=== PATIENT | male | born 1930 | race Hispanic/Latino ===

== ENCOUNTER 2016-03-23 08:26 | Emergency (ER) | payer MEDICARE, SELFPAY ==
--- NOTE | 2016-03-23 14:33 | Cat Scan Report ---
CT HEAD WITHOUT CONTRAST History: Head injury. Technique: Sequential noncontrast CT images. Findings: Right frontal soft tissue hematoma measures 2-3 cm in diameter. No associated calvarial fracture is appreciated. There is mild diffuse volume loss and chronic white matter changes which appear appropriate for this person's age. There is no evidence for hemorrhage, mass effect, extra-axial fluid collection or hydrocephalus. No chronic infarct. The visualized sinuses and mastoid air cells are well-aerated. Impression: No acute intracranial process. Right frontal soft tissue swelling/hematoma.
--- NOTE | 2016-03-23 14:34 | Cat Scan Report ---
CT SCAN OF THE CERVICAL SPINE: HISTORY: Neck injury, pain. TECHNIQUE: Contiguous 1.25 mm axial images of the cervical spine were obtained. Sagittal and coronal reformatted images. FINDINGS: There is normal alignment of the cervical spine. The body, pedicles and posterior ligaments appear normal. No evidence of fracture or subluxation is seen. Mild to moderate degenerative disc disease is noted at C5-6 and C6-7. The spinal canal appears normal. The prevertebral soft tissues appear normal. IMPRESSION: No acute injury is appreciated. Degenerative disc disease at C5-6 and C6-7.
[2016-03-23 15:55] VITALS: BP 142/79
--- NOTE | 2016-03-23 17:19 | Emergency Department Report ---
ED Fall HPI - General Chief Complaint: Fall Time Seen by Provider: 03/23/16 17:15 Source: patient, RN notes reviewed Limitations: No Limitations - History of Present Illness Initial Comments: patient is an 86-year-old gentleman who fell at home. He reports ground-level fall mechanical. He states that he struck his right frontal forehead. Having a small abrasion and bruising at that time. He knew he reports on Monday awaking and noticing significant bruising involving the right forehead area as well as the periorbital area as well he denies any headache denies any significant neck pain associated with this. He states that she takes cyclobenzaprine when necessary for his chronic mild neck pain. He describes coming in today because of the concern for the cosmetic appearance of his face. No otherwise no specific complaints he feels safe at home. He states he is taking his medications appropriately. He reports no headache whatsoever. MD Complaint: fall Onset/Timin -: days(s) Fall From: standing Fall Witnessed: no Place Fall Occurred: home Loss of Consciousness: none Prolonged Down Time?: no Symptoms Prior to Fall: none Location: head, face Severity scale (0 -10): 0 Quality: other Context: tripped/slipped Associated Symptoms: denies - Related Data Home Medications Medication Instructions Recorded Confirmed Last Taken Furosemide 20 mg PO DAILY 03/06/15 06/05/15 06/04/15 20mg Metoprolol [Lopressor TAB] 1.5 tab PO DAILY 03/06/15 06/05/15 06/04/15 1.5tab Oxybutynin [Ditropan] 5 mg PO DAILY 03/06/15 06/05/15 06/04/15 5mg Tamsulosin [Flomax] 0.4 mg PO QDAY 03/06/15 06/05/15 06/04/15 0.4mg Warfarin [Coumadin] 5 mg PO DAILY 03/06/15 06/05/15 06/04/15 5mg metFORMIN [Glucophage] 1,000 mg PO BID 03/06/15 06/05/15 06/04/15 1000mg ISOSORBIDE MONOnitrate [Imdur ER] 30 mg PO DAILY 05/01/15 06/05/15 06/04/15 30mg Previous Rx's Medication Instructions Recorded Last Taken Type Amiodarone [Cordarone 200 MG TAB] 200 mg PO BID #60 tab 05/01/15 06/04/15 Rx 200mg AtorvaSTATin [Lipitor] 10 mg PO DAILY #30 tablet 05/01/15 06/04/15 Rx 10mg Allergies Allergy/AdvReac Type Severity Reaction Status Date / Time No Known Allergies Allergy Verified 03/06/15 09:35 ED Review of Systems ROS: Stated complaint: Other details as noted in HPI Constitutional: denies: chills, fever Eyes: denies: eye pain, eye discharge, vision change ENT: denies: ear pain, throat pain Respiratory: denies: cough, shortness of breath, wheezing Cardiovascular: denies: chest pain, palpitations Endocrine: no symptoms reported Gastrointestinal: denies: abdominal pain, nausea, diarrhea Genitourinary: denies: urgency, dysuria Musculoskeletal: arthralgia (chronic). denies: back pain, joint swelling Skin: denies: rash, lesions Neurological: denies: headache, weakness, paresthesias Psychiatric: denies: anxiety, depression Hematological/Lymphatic: denies: easy bleeding, easy bruising ED Past Medical Hx - Past Medical History Hx Hypertension: Yes Hx Diabetes: Yes Hx Arthritis: Yes (generalized) Hx Dementia: No - Surgical History Hx Cholecystectomy: Yes (2007) - Social History Smoking Status: Former Smoker - Medications Home Medications: Home Medications Medication Instructions Recorded Confirmed Last Taken Type Furosemide 20 mg PO DAILY 03/06/15 06/05/15 06/04/15 History 20mg Metoprolol [Lopressor TAB] 1.5 tab PO DAILY 03/06/15 06/05/15 06/04/15 History 1.5tab Oxybutynin [Ditropan] 5 mg PO DAILY 03/06/15 06/05/15 06/04/15 History 5mg Tamsulosin [Flomax] 0.4 mg PO QDAY 03/06/15 06/05/15 06/04/15 History 0.4mg Warfarin [Coumadin] 5 mg PO DAILY 03/06/15 06/05/15 06/04/15 History 5mg metFORMIN [Glucophage] 1,000 mg PO BID 03/06/15 06/05/15 06/04/15 History 1000mg Amiodarone [Cordarone 200 MG TAB] 200 mg PO BID #60 tab 05/01/15 06/05/15 16 Rx 200mg AtorvaSTATin [Lipitor] 10 mg PO DAILY #30 tablet 05/01/15 06/05/15 06/04/15 Rx 10mg ISOSORBIDE MONOnitrate [Imdur ER] 30 mg PO DAILY 05/01/15 06/05/15 06/04/15 History 30mg ED Physical Exam - General General appearance: alert, in no apparent distress - Head Head exam: Present: other (right forehead with superficial abrasion with good hemostasis. Large underlying ecchymosis region. With dependent drainage to the right periorbital area. No tenderness with palpation of this area. No bony depression appreciated. No periorbital bony step-off appreciated.) - Eye Eye exam: Present: normal appearance, EOMI, periorbital swelling, other (R eye with subconj hematoma lateral aspect). Absent: periorbital tenderness Pupils: Present: other (3mm reactive pupils bilat) - ENT ENT exam: Present: normal orophraynx, mucous membranes moist, other (no tmj tenderness) - Neck Neck exam: Present: normal inspection, full ROM. Absent: tenderness - Respiratory Respiratory exam: Present: normal lung sounds bilaterally. Absent: respiratory distress - Cardiovascular Cardiovascular Exam: Present: regular rate, normal rhythm. Absent: systolic murmur, diastolic murmur, rubs, gallop - GI/Abdominal GI/Abdominal exam: Present: soft, normal bowel sounds - Rectal Rectal exam: Present: deferred - Extremities Exam Extremities exam: Present: normal inspection - Back Exam Back exam: Present: normal inspection - Neurological Exam Neurological exam: Present: alert, oriented X3 - Psychiatric Psychiatric exam: Present: normal affect, normal mood - Skin Skin exam: Present: warm, dry, intact, normal color. Absent: rash ED Course Vital Signs 03/23/16 15:54 Pulse Rate 71 Respiratory 18 Rate Blood Pressure 142/79 [Right] O2 Sat by Pulse 99 Oximetry - Reevaluation(s) Reevaluation #1: 03/23/16 18:02 Patient intact neurologically here. He is able to ambulate in the ED without difficulty. He is actually somewhat on onory due to his long stay here and requesting to go home at this time. I do not see any concerning features in his examination. His CT brain is negative for acute process. It does demonstrate mild contusion of the soft tissue in the right frontal scalp area as well as in the periorbital region. His CT of C-spine does demonstrate some chronic degenerative change. This is pre-existing as per the patient. I feel he is safe for home. His INR is 2.0 he is instructed to continue on his current regimen of Coumadin. ED Medical Decision Making - Lab Data INR 2.0 Critical care attestation.: If time is entered above; I have spent that time in minutes in the direct care of this critically ill patient, excluding procedure time. ED Disposition Clinical Impression: Contusion Qualifiers: Encounter type: initial encounter Contusion area: head Contusion of head detail : periocular area Laterality: right Qualified Code(s): S00.11XA - Contusion of right eyelid and periocular area, initial encounter Cervical strain, acute Qualifiers: Encounter type: initial encounter Qualified Code(s): S16.1XXA - Strain of muscle, fascia and tendon at neck level, initial encounter Disposition: DISCHARGED TO HOME OR SELFCARE Is pt being admited?: No Does the pt Need Aspirin: No Condition: Stable Instructions: Cervical Spine Strain (ED), Black Eye (ED) Additional Instructions: Take tylenol as needed for pains. Cyclobenzaprine will help with your pains as well. Referrals: CHACORTA DIAL MD [Primary Care Provider] - 3-5 Days
== END 2016-03-23 17:30 | disposition home or self-care (01) ==
LOC: ED 08:26
DX: S00.11XA Contusion of right eyelid and periocular area, initial encounter (principal); S16.1XXA Strain of muscle, fascia and tendon at neck level, initial encounter; I10 Essential (primary) hypertension; E11.9 Type 2 diabetes mellitus without complications; M19.90 Unspecified osteoarthritis, unspecified site; Z87.891 Personal history of nicotine dependence; W18.30XA Fall on same level, unspecified, initial encounter; Y93.89 Activity, other specified; Y99.8 Other external cause status; Y92.009 Unspecified place in unspecified non-institutional (private) residence as the place of occurrence of the external cause
CPT/HCPCS: 70450; 72125

== ENCOUNTER 2016-08-28 22:12 | Inpatient (IN) | payer MEDICARE ==
--- NOTE | 2016-08-28 23:02 | Emergency Department Report ---
HPI - General Chief Complaint: Fall Time Seen by Provider: 08/28/16 22:45 - HPI HPI: Room 9 The patient is an 86-year-old male presenting with a chief complaint of fall. The patient states this morning at approximately 10:30 all walking to the kitchen and fell. The patient is uncertain why he fell but states that he did not trip. The patient states he does not believe he lost consciousness but is uncertain. The patient eventually got up and went to his bedroom where he eventually fell a second time. Family came to the home to find the patient will the floor. Patient denied chest pain nausea/vomiting or shortness of breath. Patient complains of pain in his back with movement since the fall but denies back pain at rest. Patient states he has been unable to urinate today. Location: [see above] Duration: [see above] Quality: [see above] Severity: [see above] Modifying factors: [see above] Context: [see above] Mode of transportation: [not driving] ED Past Medical Hx - Past Medical History Hx Hypertension: Yes Hx Diabetes: Yes Hx Arthritis: Yes (generalized) Additional medical history: Atrial fibrillation - Surgical History Hx Cholecystectomy: Yes (2007) Additional Surgical History: Cardiac ablation - Family History Family history: no significant - Social History Smoking Status: Never Smoker Substance Use Type: None - Medications Home Medications: Home Medications Medication Instructions Recorded Confirmed Last Taken Type Furosemide 20 mg PO DAILY 03/06/15 08/28/16 08/28/16 08:00 History Metoprolol [Lopressor TAB] 1.5 tab PO DAILY 03/06/15 08/28/16 08/28/16 08:00 History Oxybutynin [Ditropan] 5 mg PO DAILY 03/06/15 08/28/16 08/28/16 08:00 History Tamsulosin [Flomax] 0.4 mg PO QDAY 03/06/15 08/28/16 08/28/16 08:00 History Warfarin [Coumadin] 5 mg PO DAILY 03/06/15 08/28/16 08/27/16 17:00 History metFORMIN [Glucophage] 1,000 mg PO BID 03/06/15 08/28/16 08/28/16 08:00 History ISOSORBIDE MONOnitrate [Imdur ER] 30 mg PO DAILY 05/01/15 08/28/16 08/28/16 08: 00 History Amiodarone HCl [Amiodarone 100 MG 200 mg PO BID 08/28/16 08/28/16 08/28/16 08: 00 History TAB] AtorvaSTATin [Lipitor] 10 mg PO QHS 08/28/16 08/28/16 08/27/16 21:00 History ED Review of Systems ROS: Stated complaint: FALL Other details as noted in HPI Comment: All other systems reviewed and negative Constitutional: weakness. denies: chills, fever Eyes: denies: eye pain, eye discharge, vision change ENT: denies: ear pain, throat pain Respiratory: denies: cough, shortness of breath, wheezing Cardiovascular: denies: chest pain, palpitations Endocrine: no symptoms reported Gastrointestinal: denies: abdominal pain, nausea, diarrhea Genitourinary: other (unable to urinate) Musculoskeletal: back pain Skin: denies: rash, lesions Neurological: denies: headache, weakness, paresthesias Psychiatric: denies: anxiety, depression Hematological/Lymphatic: denies: easy bleeding, easy bruising Physical Exam - Physical Exam Vital Signs: Vital Signs 08/28/16 22:28 Temperature 98.0 F Pulse Rate 82 Respiratory 16 Rate Blood Pressure 147/63 Blood Pressure 147/63 [Left] O2 Sat by Pulse 95 Oximetry Physical Exam: GENERAL: The patient is well-developed well-nourished male lying on stretcher not appearing to be in acute distress. [] HEENT: Normocephalic. Atraumatic. Extraocular motions are intact. Patient has moist mucous membranes. NECK: Supple. Trachea midline CHEST/LUNGS: Clear to auscultation. There is no respiratory distress noted. HEART/CARDIOVASCULAR: Regular. There is no tachycardia. There is no gallop rub or murmur. ABDOMEN: Abdomen is soft, except for suprapubic fullness with obvious distended bladder. Patient has normal bowel sounds. SKIN: There is no diaphoresis. NEURO: The patient is awake, alert, and oriented. The patient is cooperative. The patient has no focal neurologic deficits. The patient has normal speech MUSCULOSKELETAL: There is no tenderness or deformity. There is no evidence of acute injury. ED Course Vital Signs 08/28/16 22:28 Temperature 98.0 F Pulse Rate 82 Respiratory 16 Rate Blood Pressure 147/63 Blood Pressure 147/63 [Left] O2 Sat by Pulse 95 Oximetry ED Medical Decision Making - Lab Data Result diagrams: 08/28/16 22:57 08/28/16 22:57 Laboratory Tests 08/28/16 08/28/16 08/28/16 22:57 22:57 22:57 WBC 12.3 H RBC 4.30 Hgb 12.7 Hct 38.8 MCV 90 MCH 29 MCHC 33 RDW 15.2 Plt Count 183 Lymph % (Auto) 4.2 L [place] % (Auto) 9.0 H Eos % (Auto) 0.0 Baso % (Auto) 0.0 Lymph # 0.5 L [place] # 1.1 H Eos # 0.0 Baso # 0.0 Seg Neutrophils % 86.8 H Seg Neutrophils # 10.6 H PT 24.7 H INR 2.10 H APTT 34.1 Sodium 140 Potassium 4.0 Chloride 101.2 Carbon Dioxide 23 Anion Gap 20 BUN 25 H Creatinine 0.9 Estimated GFR > 60 BUN/Creatinine Ratio 27.77 Glucose 119 H Calcium 8.7 Total Bilirubin 0.70 AST 89 H ALT 23 Alkaline Phosphatase 47 Total Creatine Kinase 6660 H CK-MB (CK-2) 17.5 H CK-MB (CK-2) Rel Index 0.2 Troponin T < 0.010 Total Protein 6.6 Albumin 3.7 L Albumin/Globulin Ratio 1.3 Urine Color Urine Turbidity Urine pH Ur Specific [place] Urine Protein Urine Glucose (UA) Urine Ketones Urine Blood Urine Nitrite Urine Bilirubin Urine Urobilinogen Ur Leukocyte Esterase Urine WBC (Auto) Urine RBC (Auto) Urine Bacteria (Auto) Urine Mucus 08/28/16 Unknown WBC RBC Hgb Hct MCV MCH MCHC RDW Plt Count Lymph % (Auto) [place] % (Auto) Eos % (Auto) Baso % (Auto) Lymph # [place] # Eos # Baso # Seg Neutrophils % Seg Neutrophils # PT INR APTT Sodium Potassium Chloride Carbon Dioxide Anion Gap BUN Creatinine Estimated GFR BUN/Creatinine Ratio Glucose Calcium Total Bilirubin AST ALT Alkaline Phosphatase Total Creatine Kinase CK-MB (CK-2) CK-MB (CK-2) Rel Index Troponin T Total Protein Albumin Albumin/Globulin Ratio Urine Color Yellow Urine Turbidity Clear Urine pH 5.0 Ur Specific [place] 1.018 Urine Protein <15 mg/dl Urine Glucose (UA) Neg Urine Ketones Tr Urine Blood Mod Urine Nitrite Neg Urine Bilirubin Neg Urine Urobilinogen < 2.0 Ur Leukocyte Esterase Neg Urine WBC (Auto) 1.0 Urine RBC (Auto) 2.0 Urine Bacteria (Auto) 1+ Urine Mucus Few - EKG Data -: EKG Interpreted by Me EKG shows normal: sinus rhythm Rate: normal - EKG Data When compared to previous EKG there are: previous EKG unavailable Interpretation: other (no ischemic changes seen) - Radiology Data Radiology results: report reviewed (CT head, CT cervical spine), image reviewed (CT head, CT cervical spine, pelvis x-ray, lumbar x-ray, thoracic spine x-ray) interpreted by me: Pelvis x-ray-no definite fractures Lumbar spine [id number] changes at L5 thoracic spine x-ray-no acute fractures CT cervical spine (read by radiologist)-no significant abnormality CT head (read by radiologist)-there are chronic involutional changes. There is no skull fracture, hemorrhage or edema. - Differential Diagnosis syncope, rhabdomyolysis, ICH, pelvic fracture Critical care attestation.: If time is entered above; I have spent that time in minutes in the direct care of this critically ill patient, excluding procedure time. ED Disposition Clinical Impression: Rhabdomyolysis, Weakness, Fall Disposition: OP ADMIT IP TO THIS HOSP Is pt being admited?: Yes Does the pt Need Aspirin: No Condition: Fair Referrals: PRIMARY CARE, [Primary Care Provider] - 3-5 Days Time of Disposition: 03:06 (hospitalist paged)
[2016-08-28 23:17] LABS: Hematocrit 38.8 % (35.5-45.6); Hemoglobin 12.7 gm/dl (11.8-15.2); Mean Corpuscular HGB Conc 33 % (32-34); Mean Corpuscular Hemoglobin 29 pg (28-32); Mean Corpuscular Volume 90 fl (84-94); Platelet Count 183 K/mm3 (140-440); Red Cell Distribution Width 15.2 % (13.2-15.2); White Blood Count 12.3 K/mm3 (4.5-11.0)
[2016-08-28] MEDS ORDERED: NORCO 5/325 PO ONE (23:26)
[2016-08-28 23:28] LABS: INR 2.1 (0.87-1.13)
[2016-08-28 23:29] LABS: Partial Thromboplastin Time 34.1 Sec. (24.2-36.6)
[2016-08-28 23:33] LABS: Creatine Kinase MB 17.5 ng/mL (0.0-4.0)
[2016-08-28 23:34] LABS: Alanine Aminotransferase 23 units/L (7-56); Albumin 3.7 g/dL (3.9-5); Albumin/Globulin Ratio 1.3 %; Alkaline Phosphatase 47 units/L (35-129); Anion Gap 20 mmol/L; BUN/Creatinine Ratio 27.77; Blood Urea Nitrogen 25 mg/dL (9-20); Calcium 8.7 mg/dL (8.4-10.2); Carbon Dioxide 23 mmol/L (22-30); Chloride 101.2 mmol/L (98-107); Glucose 119 mg/dL (75-100); Sodium 140 mmol/L (137-145); Total Protein 6.6 g/dL (6.3-8.2)
[2016-08-28 23:49] LABS: Creatine Kinase 6660 units/L (55-170)
[2016-08-29 01:15] LABS: Bacteria,Urine 1+ /HPF (Negative); Bilirubin,Urine NEG (Negative); Blood,Urine MOD (Negative); Ketones,Urine TR mg/dL (Negative); Leukocyte Esterase,Urine NEG (Negative); Mucus,Urine FEW /HPF; Nitrite,Urine NEG (Negative); Protein,Urine <15 mg/dL mg/dL (Negative); Urobilinogen,Urine < 2.0 mg/dL (<2.0)
--- NOTE | 2016-08-29 02:33 | Cat Scan Report ---
FINAL REPORT PROCEDURE: CT HEAD/BRAIN WO CON TECHNIQUE: Computerized tomography of the head was performed without contrast material. HISTORY: fall on Coumadin, unknown LOC COMPARISON: 03/23/2016 FINDINGS: Skull and scalp: Normal. Paranasal sinuses: Normal. Ventricles and subarachnoid spaces: There is moderate age-appropriate central and cortical atrophy. There is no hydrocephalus or asymmetry.. Cerebrum: No evidence of hemorrhage, acute infarction or mass . Cerebellum and brainstem: No evidence of hemorrhage, acute infarction or mass. Vasculature: There is calcified plaque in the cavernous portions of the internal carotid arteries. There is no evidence of acute thrombosis.. Comments: None. IMPRESSION: There are chronic involutional changes. There is no skull fracture, hemorrhage or edema.
--- NOTE | 2016-08-29 02:45 | Cat Scan Report ---
FINAL REPORT PROCEDURE: CT CERVICAL SPINE WO CON TECHNIQUE: Computerized tomography of the cervical spine was performed from the skull base to T1 without contrast material. HISTORY: fall on Coumadin, unknown LOC COMPARISON: 03/23/2016 FINDINGS: There is normal lordosis of the cervical spine. There are no fractures or malalignments. The skull base and the foramen magnum are intact. There is right facet arthropathy at C3-C4 causing right foraminal stenosis. There is moderate loss of disc height and osteophytic ridging at C5-C6 and C6-C7. There is no facet dislocation. Prevertebral soft tissues are normal in thickness IMPRESSION: No significant abnormality.
[2016-08-29] MEDS ORDERED: NACL 0.9% 1000 ML 1,000 ML IV ONE (03:05)
[2016-08-29] MEDS ORDERED: ZOFRAN IV PRN (04:45)
[2016-08-29] MEDS ORDERED: SODIUM BICARBONATE 100 MEQ in STERILE WATER 1,000 ML IV ONE (05:00)
--- NOTE | 2016-08-29 05:23 | History and Physical Report ---
History of Present Illness Date of examination: 08/29/16 Date of admission: 08/29/16 04:41 Chief complaint: Chief complaint is fall order complaining include elevated CPK History of present illness: History of present illness the patient is an 86-year-old male who said he fell twice at home prior to coming to the emergency room, patient was not sure why he fell, he said he went up to go to the bathroom and fell but was not sure that he lost consciousness. He got up and went back to the bedroom and fell again and family came back and found him on the floor, there is no history of chest pain no history of shortness of breath nausea or vomiting and no history of fever, however patient complaining about being unable to urinate yesterday but there is no history of suprapubic pain or pressure Past History Past Medical History: atrial fib, arthritis, diabetes, hypertension, other ( DEMENTIA) Past Surgical History: cholecystectomy, Other (CARDIAC ABLATION) Social history: Lives alone Family history: no significant family history Medications and Allergies Allergies Allergy/AdvReac Type Severity Reaction Status Date / Time No Known Allergies Allergy Verified 08/28/16 22:33 Home Medications Medication Instructions Recorded Confirmed Last Taken Type Furosemide 20 mg PO DAILY 03/06/15 08/28/16 08/28/16 08:00 History Metoprolol [Lopressor TAB] 1.5 tab PO DAILY 03/06/15 08/28/16 08/28/16 08:00 History Oxybutynin [Ditropan] 5 mg PO DAILY 03/06/15 08/28/16 08/28/16 08:00 History Tamsulosin [Flomax] 0.4 mg PO QDAY 03/06/15 08/28/16 08/28/16 08:00 History Warfarin [Coumadin] 5 mg PO DAILY 03/06/15 08/28/16 08/27/16 17:00 History metFORMIN [Glucophage] 1,000 mg PO BID 03/06/15 08/28/16 08/28/16 08:00 History ISOSORBIDE MONOnitrate [Imdur ER] 30 mg PO DAILY 05/01/15 08/28/16 08/28/16 08: 00 History Amiodarone HCl [Amiodarone 100 MG 200 mg PO BID 08/28/16 08/28/16 08/28/16 08: 00 History TAB] AtorvaSTATin [Lipitor] 10 mg PO QHS 08/28/16 08/28/16 08/27/16 21:00 History Active Meds: Active Medications Sodium Chloride (Nacl 0.9% 1000 Ml) 1,000 mls @ 250 mls/hr IV ONCE ONE Stop: 08/29/16 07:04 Last Admin: 08/29/16 03:47 Dose: 250 mls/hr Sodium Bicarbonate 100 meq/ (Sterile Water) 1,100 mls @ 75 mls/hr IV ONCE.ED ONE Stop: 08/29/16 19:39 Insulin Human Regular (Novolin R) 0 units SUB-Q AC FLAVIA PRN Reason: Protocol Insulin Human Regular (Novolin R) 0 units SUB-Q QHS FLAVIA PRN Reason: Protocol Ondansetron HCl (Zofran) 4 mg IV Q6H PRN PRN Reason: Nausea And Vomiting Review of Systems Constitutional: weakness, no weight loss, no weight gain, no fever, no anorexia , no fatigue, no malaise, no lethargy, no daytime sleepiness Eyes: bilateral: other (NO BILATERAL EYE SYMPTOMS) Ears, nose, mouth and throat: no ear pain, no ear discharge, no tinnitis, no decreased hearing, no nose pain, no nasal congestion, no nasal discharge, no sinus pressure, no sinus pain, no bleeding gums, no dental pain, no mouth pain, no dysphagia, no hoarseness, no sore throat, no swelling in mouth, no swelling in throat, no voice changes, no post-nasal drip, no headache, no vertigo, no pain front of neck, no neck fullness/pressure, no neck lump Cardiovascular: high blood pressure, no chest pain, no orthopnea, no palpitations, no rapid/irregular heart beat, no edema, no syncope, no lightheadedness, no shortness of breath, no claudication, no phlebitis, no leg edema Respiratory: no cough, no cough with sputum, no excessive sputum, no hemoptysis , no shortness of breath, no dyspnea on exertion, no wheezing, no pleurisy, no pain, no pain on inspiration, no sleep apnea, no respiratory infections, no home oxygen Gastrointestinal: no abdominal pain, no nausea, no vomiting, no diarrhea, no constipation, no change in bowel habits, no hematochezia, no loss of appetite, no early satiety, no heartburn, no excessive gas, no jaundice, no dyspepsia/ bloating, no early satiety Genitourinary Male: dysuria, no hematuria, no flank pain, no discharge, no urinary frequency, no urinary hesitancy, no nocturia, no incontinence, no erectile dysfunction, no genital pain, no impotence, no decreased libido, no testicular pain, no testicular lump, no difficulties fathering child, no polyuria, no urinary retention, no kidney stones Rectal: no pain, no incontinence, no hemorrhoids, no discharge, no flatulence, no other Musculoskeletal: no neck pain, no shooting arm pain, no arm numbness/tingling, no low back pain, no shooting leg pain, no leg numbness/tingling, no hot joints , no morning stiffness, no muscle weakness, no muscle cramps, no myalgias, no atrophy, no limitation of motion, no frequent falls, no fractures, no loss of height, no prior amputations Integumentary: no rash, no pruritis, no redness, no sores, no wounds, no jaundice, no bullae, no lesions, no darkening of skin, no depigmentation, no acne, no dryness, no color changes, no change in hair/nails, no brittle nails, no striae, no hirsutism, no foot/leg ulcers, no onychomycosis Neurological: memory loss, no head injury, no transient paralysis, no paralysis , no weakness, no parathesias, no numbness, no tingling, no seizures, no syncope , no tremors, no ataxia, no headaches, no migraines, no tic, no convulsions, no aphasia, no change in speech, no change in mentation, no confusion, no changes in smell/taste, no motor disturbance, no sensory deficit, no double vision, no loss of vision, no hearing difficulties, no burning pain Psychiatric: memory loss, no change in sleep habits, no sleep disturbances, no insomnia, no hypersomnia, no change in appetite, no change in libido, no depression, no hopelessness, no anhedonia, no anxiety attacks, no difficulties concentrating Endocrine: no cold intolerance, no heat intolerance, no polyphagia, no excessive thirst, no polydipsia, no polyuria, no nocturia, no excessive sweating , no flushing, no increase in ring/shoe/hat size, no proptosis, no thyroid mass , no palpatations, no high blood sugars, no low blood sugars, no recent glucocorticoid use Hematologic/Lymphatic: no easy bruising, no easy bleeding, no lymphadenopathy, no lymphedema, no thrombophilia Allergic/Immunologic: no urticaria, no allergic rhinitis, no persistent infections, no anaphylaxis Exam - Constitutional Vitals: Temp Pulse Resp BP Pulse Ox 98.0 F 91 H 16 128/54 95 08/28/16 22:28 08/29/16 05:13 08/29/16 05:13 08/29/16 05:13 08/29/16 05:13 General appearance: Present: no acute distress - EENT Eyes: Present: PERRL, EOM intact. Absent: scleral icterus, conjunctival injection, miosis, mydriasis ENT: clear oral mucosa, dentition normal, no oropharyngeal erythema, no poor dentition, no edentulous - Neck Neck: Present: supple, normal ROM. Absent: rigidity, enlarged thyroid, masses or JVD, carotid bruits - Respiratory Respiratory effort: normal - Cardiovascular Rhythm: regular Heart Sounds: Present: S1 & S2. Absent: gallop, systolic murmur, diastolic murmur, rub, click - Extremities Extremities: no ischemia, No edema Peripheral Pulses: within normal limits - Abdominal General gastrointestinal: Present: soft, non-tender, non-distended, normal bowel sounds. Absent: tender, distended, rigid, hypoactive bowel sounds, absent bowel sounds, hepatomegaly, splenomegaly, mass, hernia Male genitourinary: Present: deferred - Rectal Rectal Exam: deferred - Integumentary Integumentary: Present: clear, warm, dry, normal turgor. Absent: erythema, jaundice, clammy - Musculoskeletal Musculoskeletal: strength equal bilaterally - Psychiatric Psychiatric: appropriate mood/affect Results - Labs CBC & Chem 7: 08/28/16 22:57 08/28/16 22:57 Labs: Laboratory Last Values WBC 12.3 K/mm3 (4.5-11.0) H 08/28/16 22:57 RBC 4.30 M/mm3 (3.65-5.03) 08/28/16 22:57 Hgb 12.7 gm/dl (11.8-15.2) 08/28/16 22:57 Hct 38.8 % (35.5-45.6) 08/28/16 22:57 MCV 90 fl (84-94) 08/28/16 22:57 MCH 29 pg (28-32) 08/28/16 22:57 MCHC 33 % (32-34) 08/28/16 22:57 RDW 15.2 % (13.2-15.2) 08/28/16 22:57 Plt Count 183 K/mm3 (140-440) 08/28/16 22:57 Lymph % (Auto) 4.2 % (13.4-35.0) L 08/28/16 22:57 [place] % (Auto) 9.0 % (0.0-7.3) H 08/28/16 22:57 Eos % (Auto) 0.0 % (0.0-4.3) 08/28/16 22:57 Baso % (Auto) 0.0 % (0.0-1.8) 08/28/16 22:57 Lymph # 0.5 K/mm3 (1.2-5.4) L 08/28/16 22:57 [place] # 1.1 K/mm3 (0.0-0.8) H 08/28/16 22:57 Eos # 0.0 K/mm3 (0.0-0.4) 08/28/16 22:57 Baso # 0.0 K/mm3 (0.0-0.1) 08/28/16 22:57 Seg Neutrophils % 86.8 % (40.0-70.0) H 08/28/16 22:57 Seg Neutrophils # 10.6 K/mm3 (1.8-7.7) H 08/28/16 22:57 PT 24.7 Sec. (12.2-14.9) H 08/28/16 22:57 INR 2.10 (0.87-1.13) H 08/28/16 22:57 APTT 34.1 Sec. (24.2-36.6) 08/28/16 22:57 Sodium 140 mmol/L (137-145) 08/28/16 22:57 Potassium 4.0 mmol/L (3.6-5.0) 08/28/16 22:57 Chloride 101.2 mmol/L (98-107) 08/28/16 22:57 Carbon Dioxide 23 mmol/L (22-30) 08/28/16 22:57 Anion Gap 20 mmol/L 08/28/16 22:57 BUN 25 mg/dL (9-20) H 08/28/16 22:57 Creatinine 0.9 mg/dL (0.8-1.5) 08/28/16 22:57 Estimated GFR > 60 ml/min 08/28/16 22:57 BUN/Creatinine Ratio 27.77 % 08/28/16 22:57 Glucose 119 mg/dL (75-100) H 08/28/16 22:57 Calcium 8.7 mg/dL (8.4-10.2) 08/28/16 22:57 Total Bilirubin 0.70 mg/dL (0.1-1.2) 08/28/16 22:57 AST 89 units/L (5-40) H 08/28/16 22:57 ALT 23 units/L (7-56) 08/28/16 22:57 Alkaline Phosphatase 47 units/L (35-129) 08/28/16 22:57 Total Creatine Kinase 6660 units/L (55-170) H 08/28/16 22:57 CK-MB (CK-2) 17.5 ng/mL (0.0-4.0) H 08/28/16 22:57 CK-MB (CK-2) Rel Index 0.2 (0-4) 08/28/16 22:57 Troponin T < 0.010 ng/mL (0.00-0.029) 08/28/16 22:57 Total Protein 6.6 g/dL (6.3-8.2) 08/28/16 22:57 Albumin 3.7 g/dL (3.9-5) L 08/28/16 22:57 Albumin/Globulin Ratio 1.3 % 08/28/16 22:57 Urine Color Yellow (Yellow) 08/28/16 Unknown Urine Turbidity Clear (Clear) 08/28/16 Unknown Urine pH 5.0 (5.0-7.0) 08/28/16 Unknown Ur Specific [place] 1.018 (1.003-1.030) 08/28/16 Unknown Urine Protein <15 mg/dl mg/dL (Negative) 08/28/16 Unknown Urine Glucose (UA) Neg mg/dL (Negative) 08/28/16 Unknown Urine Ketones Tr mg/dL (Negative) 08/28/16 Unknown Urine Blood Mod (Negative) 08/28/16 Unknown Urine Nitrite Neg (Negative) 08/28/16 Unknown Urine Bilirubin Neg (Negative) 08/28/16 Unknown Urine Urobilinogen < 2.0 mg/dL (<2.0) 08/28/16 Unknown Ur Leukocyte Esterase Neg (Negative) 08/28/16 Unknown Urine WBC (Auto) 1.0 /HPF (0.0-6.0) 08/28/16 Unknown Urine RBC (Auto) 2.0 /HPF (0.0-6.0) 08/28/16 Unknown Urine Bacteria (Auto) 1+ /HPF (Negative) 08/28/16 Unknown Urine Mucus Few /HPF 08/28/16 Unknown Assessment and Plan - Patient Problems (1) Fall Current Visit: Yes Status: Acute Qualifiers: Encounter type: E (2) Rhabdomyolysis Current Visit: Yes Status: Acute Qualifiers: Rhabdomyolysis type: R Encounter type: E Plan to address problem: Patient will be admitted to medical floor I will be on IV 1 Litre of water mixed with back 2 amps of bicarbonate and given the rate of 75 mL an hour times one does and patient will be reassessed for continuation of IV bicarbonate solution. Patient will have CPK checked every 6 hours 3 more levels and will have 2-D echo done because of repeated falls patient's diet will be consistent carbohydrate diet and patient will be on Accu-Chek before meals and daily at bedtime followed by sliding scale using low dose scale and regular insulin coverage (3) Weakness Current Visit: Yes Status: Acute
--- NOTE | 2016-08-29 08:11 | Event Note ---
Date: 08/29/16 Patient with rhabdomyolysis after fall. . He is on iv fluids. He was seen and examined by me today. Continue current management.
--- NOTE | 2016-08-29 08:26 | XRay Report ---
PELVIS RADIOGRAPH INDICATION: Pelvic pain, fall. COMPARISON: None similar. FINDINGS: Frontal pelvic radiograph demonstrates intact articulation. Nonobstructive bowel gas pattern with rectal stool. Intact imaged bilateral SI and hip joints. Lower lumbar degenerative changes. Bony demineralization. CONCLUSION: No acute radiographic abnormality with few other findings, as above. Thank you for the opportunity to participate in this patient's care.
[2016-08-29] MEDS ORDERED: D5NS 1,000 ML IV SCH (08:30)
--- NOTE | 2016-08-29 08:34 | XRay Report ---
THORACIC SPINE RADIOGRAPHS: INDICATION: Back pain after fall. COMPARISON: None similar. FINDINGS: AP and crosstable lateral thoracic spine radiographs demonstrate normal vertebral body stature with multilevel degenerative spurring and disc calcifications, more so mid to lower thoracic. Mild thoracic dextroscoliosis apex about T6. Few aortic and carotid atherosclerotic calcifications. Clear imaged lungs. Left hemidiaphragm maybe slightly elevated. Normal heart size. Osteopenia/osteoporosis. No abnormal paraspinal density suspected. CONCLUSION: No acute thoracic spine radiographic abnormality with degenerative changes and various other findings, as above. Please correlate. Thank you for the opportunity to participate in this patient's care.
--- NOTE | 2016-08-29 09:47 | XRay Report ---
LUMBAR SPINE RADIOGRAPHS: INDICATION: Lower back pain after fall. COMPARISON: None similar. FINDINGS: AP and crosstable lateral lumbar spine radiographs demonstrate normal vertebral body stature with moderate diffuse multilevel degenerative spurring. Lower lumbar facet arthropathy as well. Osteopenia/osteoporosis. Approximately 4 mm retrolisthesis of L2 over L3. Multilevel disc degeneration/narrowing, greatest at L2-L3. Right upper quadrant possible cholecystectomy clips. Few vascular calcifications. Abdominal aorta caliber estimated at 2.6 cm. Rectosigmoid stool. Intact SI joints. CONCLUSION: No acute lumbar radiographic abnormality with various degenerative changes and few other findings, as above. Thank you for the opportunity to participate in this patient's care.
[2016-08-29] MEDS: NACL 0.9% 1000 ML 1,000 ML IV SCH (13:33)
[2016-08-29] MEDS ORDERED: NON-FORMULARY (Amiodarone Hcl [Amiodarone 100 Mg Tab] 200 MG) PO SCH (16:00)
[2016-08-29] MEDS: FLOMAX PO SCH (17:00)
[2016-08-29] MEDS: DITROPAN PO SCH (17:09)
[2016-08-29] MEDS: COUMADIN PO SCH (17:09)
[2016-08-29] MEDS: CORDARONE PO SCH ×2 (17:10→22:55)
[2016-08-29] MEDS: IMDUR PO SCH (17:13)
[2016-08-29] MEDS: LOPRESSOR PO SCH (17:18)
[2016-08-29] MEDS: NORCO 5/325 PO PRN (17:29)
--- NOTE | 2016-08-29 18:06 | Admit Criteria Form ---
Admission Criteria Documentation: MUSCULOSKELETAL DISEASE GRG Clinical Indications for Admission to Inpatient Care (Place 'X' for any and all applicable criteria): Hospital admission is needed for appropriate care of the patient because of 1 or more of the following: [ ]I. Fracture, dislocation, or other musculoskeletal injury requiring inpatient care(medical) as indicated by 1 or more of the following(4)(5)(6)(7) [ ]a) Vertebral fracture requiring observation for instability or neurologic compromise (8) [ ]b) Compartment syndrome (proven or cannot be ruled out during observation level of care) (9) [ ]c) Limb-threatening injury [ ]d) Major injury requiring inpatient stabilization such as traction initiation or external fixation before internal fixation or closure of complex or open fracture [ ]e) Major injury requiring inpatient treatment after emergency or observation level care (as appropriate) [ ]f) Severe pain requiring acute inpatient management [ ]g) Injury with suspicion of abuse or neglect (eg., child, dependent elderly) [ ]II. Newly diagnosed or suspected bone, joint, or orthopedic device infection (e.g., osteomyelitis, septic arthritis) needing 1 or more of the following(1)(2)(3) [ ]a) IV antibiotics that cannot be initiated in other than inpatient setting (e.g., patient too unstable or home infusion not available) [ ]b) Device removal or replacement [ ]c) Bone or soft tissue debridement [ ]d) Joint drainage (drain placement or repetitive aspirations) [ ]III. Severe rheumatologic disease (e.g., systemic lupus erythematosus, rheumatoid arthritis) with complications or comorbidities (Also use Optimal Recovery Care Criteria or General Recovery Criteria as appropriate on the basis of predominant condition), including 1 or more of the following( 10)(11)(12)(13) [ ]a) Severe infection (e.g., ALMOND HULLER infection, sepsis) (14) [ ]b) Respiratory complications, including 1 or more of the following : [ ]i) Pleural effusion with respiratory compromise [ ]ii) Pulmonary hypertension with congestive failure [ ]iii) Respiratory failure [ ]iv) Pulmonary hemorrhage (15) [ ]c) Hematologic disease, including 1 or more of the following: [ ]i) Coagulopathy with bleeding [ ]ii) Thrombosis with hypercoagulable state [ ]iii) Thrombotic thrombocytopenic purpura [ ]d) Cerebritis with seizures, psychosis, or other severe abnormalities [ ]e) Vertebral destruction with monitoring needed for cervical myelopathy& possible respiratory compromise [ ]f) Exacerbation that requires inpatient treatment (e.g., intravenous immunosuppression) (16) [ ]g) Acute renal failure [ ]h) Cerebritis with seizures, psychosis, Altered mental status, or other neurologic abnormalities [ ]i) Pericardial effusion with tamponade [ ]j) Vertebral destruction, with monitoring needed for cervical myelopathy and possible respiratory compromise [ ]IV. Severe vasculitis with complications or comorbidities (Also use Optimal Recovery Care Criteria General Recovery Criteria as appropriate on the basis of predominant condition), including 1 or more of the following(11)(12)(17)(18)(19)(20) [ ]a) Exacerbation that requires inpatient treatment (e.g., intravenous immunosuppression) (19)(21) [ ]b) Pulmonary hemorrhage (15) [ ]c) ALMOND HULLER vasculitis with seizures, psychosis, Altered mental status that is severe or persistent, or other severe abnormalities (22) [ ]d) Cerebral infarction [ ]e) Gastrointestinal ischemia [ ]f) Gangrene or threatened amputation [ ]g) Renal failure (16) [ ]h) Other significant complications of vasculitis ( eg., tissue or organ ischemia, organ dysfunction ) [ ]V. Severe myopathy as indicated by 1 or more of the following (28)(29) [ ]a) New onset of airway compromise or inability to swallow [ ]b) Respiratory deterioration with observation needed for impending respiratory failure [ ]c) Exacerbation that requires inpatient treatment (e.g., intravenous immunosuppression) [ ]. Severe crystal gout (arthropathy) indicated by 1 or more of the following (23)(24) [ ]a) Severe pain requiring acute inpatient management [ ]b) Exacerbation that requires inpatient treatment (e.g., intravenous treatment) [X ]VII.Rhabdomyolysis and 1 or more of the following (25)(26)(27) [ ]a) Acute renal failure [ X]b) Need for intravenous hydration after emergency or observation level care (as appropriate) [ ]c) Inability to maintain oral hydration [ ]d) Change in mental status [ ]e) Electrolyte abnormality that remains after emergency or observation level care (as appropriate) [ ]VIII Post amputation complication, as indicated by ANY ONE of the following [ ]a) Infection [ ]b) Dehiscence [ ]c) Myodesis failure [ ]IX. Severe pain requiring acute inpatient management due to musculoskeletal condition [ ]X. Musculoskeletal Disease and ALL of the following: [ ]a) Symptom or finding for which emergency and observation care have failed or are not considered appropriate (Use General Criteria: Observation Care as appropriate) [ ]b) Presence of ANY ONE of the following [ ]i) A General Admission Criteria [ ]ii) A Pediatric General Admission Criteria The original [facility] [employer] content created by [facility] [employer] has been revised. The portions of the content which have been revised are identified through the use of italic text or in bold, and [facility] has neither reviewed nor approved the modified material. All other unmodified content is copyright [facility] [employer]. Please see references footnoted in the original [facility] edition [facility] Admission Criteria Met: Yes
[2016-08-29] MEDS: GLUCOPHAGE PO SCH (22:56)
[2016-08-30] MEDS: NACL 0.9% 1000 ML 1,000 ML IV SCH ×2 (04:37→19:43)
[2016-08-30 06:48] LABS: Hematocrit 32.7 % (35.5-45.6); Hemoglobin 10.9 gm/dl (11.8-15.2); Mean Corpuscular HGB Conc 33 % (32-34); Mean Corpuscular Hemoglobin 30 pg (28-32); Mean Corpuscular Volume 89 fl (84-94); Platelet Count 150 K/mm3 (140-440); Red Blood Count 3.68 M/mm3 (3.65-5.03); Red Cell Distribution Width 15.3 % (13.2-15.2); White Blood Count 8.8 K/mm3 (4.5-11.0)
[2016-08-30 06:57] LABS: INR 1.88 (0.87-1.13)
[2016-08-30 06:59] LABS: Anion Gap 16 mmol/L; Blood Urea Nitrogen 19 mg/dL (9-20); Calcium 7.6 mg/dL (8.4-10.2); Carbon Dioxide 23 mmol/L (22-30); Chloride 104.1 mmol/L (98-107); Glucose 110 mg/dL (75-100); Potassium 3.7 mmol/L (3.6-5.0); Sodium 139 mmol/L (137-145)
[2016-08-30 07:16] LABS: Creatine Kinase 3892 units/L (55-170)
[2016-08-30] MEDS: GLUCOPHAGE PO SCH ×2 (10:52→21:59)
[2016-08-30] MEDS: CORDARONE PO SCH ×2 (10:52→21:59)
[2016-08-30] MEDS: FLOMAX PO SCH (10:52)
[2016-08-30] MEDS: DITROPAN PO SCH (10:52)
[2016-08-30] MEDS: IMDUR PO SCH (10:54)
[2016-08-30] MEDS: LOPRESSOR PO SCH (10:56)
--- NOTE | 2016-08-30 11:51 | Progress Note ---
Assessment and Plan Assessment and plan: Rhabdomyolysis. Resolving. Patient's CK<4000. Continue IV fluid hydration. Status post fall. PT evaluation. ? Syncope. Check echocardiogram and carotid ultrasound. Atrial fibrillation. Rate control. Continue medications. Hypertension. Resume antihypertensives and medications. Diabetes mellitus type II. Continue Accu-Cheks and sliding scale insulin. Debility. PT evaluation. History Interval history: No new issues overnight. Hospitalist Physical - Constitutional Vitals: Temp Pulse Resp BP Pulse Ox 100.7 F H 72 20 128/58 95 08/30/16 10:00 08/30/16 10:56 08/30/16 10:00 08/30/16 10:56 08/30/16 10:00 General appearance: Present: no acute distress - EENT Eyes: Present: PERRL, EOM intact ENT: hearing intact, clear oral mucosa, dentition normal - Neck Neck: Present: supple, normal ROM - Respiratory Respiratory effort: normal Respiratory: bilateral: CTA - Cardiovascular Rhythm: regular Heart Sounds: Present: S1 & S2. Absent: gallop, rub - Extremities Extremities: no ischemia, No edema, Full ROM - Abdominal General gastrointestinal: soft, non-tender, non-distended, normal bowel sounds - Integumentary Integumentary: Present: clear, warm, dry - Neurologic Neurologic: CNII-XII intact, moves all extremities Results - Labs CBC & Chem 7: 08/30/16 06:02 08/30/16 06:02 Labs: Laboratory Last Values WBC 8.8 K/mm3 (4.5-11.0) 08/30/16 06:02 RBC 3.68 M/mm3 (3.65-5.03) 08/30/16 06:02 Hgb 10.9 gm/dl (11.8-15.2) L 08/30/16 06:02 Hct 32.7 % (35.5-45.6) L D 08/30/16 06:02 MCV 89 fl (84-94) 08/30/16 06:02 MCH 30 pg (28-32) 08/30/16 06:02 MCHC 33 % (32-34) 08/30/16 06:02 RDW 15.3 % (13.2-15.2) H 08/30/16 06:02 Plt Count 150 K/mm3 (140-440) 08/30/16 06:02 Lymph % (Auto) 4.2 % (13.4-35.0) L 08/28/16 22:57 [place] % (Auto) 9.0 % (0.0-7.3) H 08/28/16 22:57 Eos % (Auto) 0.0 % (0.0-4.3) 08/28/16 22:57 Baso % (Auto) 0.0 % (0.0-1.8) 08/28/16 22:57 Lymph # 0.5 K/mm3 (1.2-5.4) L 08/28/16 22:57 [place] # 1.1 K/mm3 (0.0-0.8) H 08/28/16 22:57 Eos # 0.0 K/mm3 (0.0-0.4) 08/28/16 22:57 Baso # 0.0 K/mm3 (0.0-0.1) 08/28/16 22:57 Seg Neutrophils % 86.8 % (40.0-70.0) H 08/28/16 22:57 Seg Neutrophils # 10.6 K/mm3 (1.8-7.7) H 08/28/16 22:57 PT 22.6 Sec. (12.2-14.9) H 08/30/16 06:02 INR 1.88 (0.87-1.13) H 08/30/16 06:02 APTT 34.1 Sec. (24.2-36.6) 08/28/16 22:57 Sodium 139 mmol/L (137-145) 08/30/16 06:02 Potassium 3.7 mmol/L (3.6-5.0) 08/30/16 06:02 Chloride 104.1 mmol/L (98-107) 08/30/16 06:02 Carbon Dioxide 23 mmol/L (22-30) 08/30/16 06:02 Anion Gap 16 mmol/L 08/30/16 06:02 BUN 19 mg/dL (9-20) 08/30/16 06:02 Creatinine 1.0 mg/dL (0.8-1.5) 08/30/16 06:02 Estimated GFR > 60 ml/min 08/30/16 06:02 BUN/Creatinine Ratio 19.00 % 08/30/16 06:02 Glucose 110 mg/dL (75-100) H 08/30/16 06:02 POC Glucose 101 (70-105) 08/30/16 07:30 Calcium 7.6 mg/dL (8.4-10.2) L 08/30/16 06:02 Total Bilirubin 0.70 mg/dL (0.1-1.2) 08/28/16 22:57 AST 89 units/L (5-40) H 08/28/16 22:57 ALT 23 units/L (7-56) 08/28/16 22:57 Alkaline Phosphatase 47 units/L (35-129) 08/28/16 22:57 Total Creatine Kinase 3892 units/L (55-170) H 08/30/16 06:02 CK-MB (CK-2) 17.5 ng/mL (0.0-4.0) H 08/28/16 22:57 CK-MB (CK-2) Rel Index 0.2 (0-4) 08/28/16 22:57 Troponin T < 0.010 ng/mL (0.00-0.029) 08/28/16 22:57 Total Protein 6.6 g/dL (6.3-8.2) 08/28/16 22:57 Albumin 3.7 g/dL (3.9-5) L 08/28/16 22:57 Albumin/Globulin Ratio 1.3 % 08/28/16 22:57 Urine Color Yellow (Yellow) 08/28/16 Unknown Urine Turbidity Clear (Clear) 08/28/16 Unknown Urine pH 5.0 (5.0-7.0) 08/28/16 Unknown Ur Specific [place] 1.018 (1.003-1.030) 08/28/16 Unknown Urine Protein <15 mg/dl mg/dL (Negative) 08/28/16 Unknown Urine Glucose (UA) Neg mg/dL (Negative) 08/28/16 Unknown Urine Ketones Tr mg/dL (Negative) 08/28/16 Unknown Urine Blood Mod (Negative) 08/28/16 Unknown Urine Nitrite Neg (Negative) 08/28/16 Unknown Urine Bilirubin Neg (Negative) 08/28/16 Unknown Urine Urobilinogen < 2.0 mg/dL (<2.0) 08/28/16 Unknown Ur Leukocyte Esterase Neg (Negative) 08/28/16 Unknown Urine WBC (Auto) 1.0 /HPF (0.0-6.0) 08/28/16 Unknown Urine RBC (Auto) 2.0 /HPF (0.0-6.0) 08/28/16 Unknown Urine Bacteria (Auto) 1+ /HPF (Negative) 08/28/16 Unknown Urine Mucus Few /HPF 08/28/16 Unknown
[2016-08-30] MEDS: NORCO 5/325 PO PRN ×2 (12:29→22:00)
[2016-08-30] MEDS: COUMADIN PO SCH (17:21)
[2016-08-30] MEDS: MORPHINE IV PRN (19:44)
[2016-08-30] MEDS: CHLORASEPTIC MM PRN (23:26)
[2016-08-31] MEDS: NORCO 5/325 PO PRN ×2 (03:58→20:26)
[2016-08-31 07:54] LABS: INR 2.06 (0.87-1.13)
[2016-08-31] MEDS: MORPHINE IV PRN (08:55)
[2016-08-31] MEDS: FLOMAX PO SCH (09:05)
[2016-08-31] MEDS: GLUCOPHAGE PO SCH ×2 (09:05→22:55)
[2016-08-31] MEDS: DITROPAN PO SCH (09:07)
[2016-08-31] MEDS: CORDARONE PO SCH ×2 (09:10→22:55)
[2016-08-31] MEDS: IMDUR PO SCH (09:11)
[2016-08-31] MEDS: LOPRESSOR PO SCH (09:12)
[2016-08-31] MEDS: NACL 0.9% 1000 ML 1,000 ML IV SCH (09:12)
--- NOTE | 2016-08-31 09:35 | Discharge Summary ---
Providers - Providers Date of Admission: 08/29/16 04:41 Date of discharge: 09/01/16 Attending physician: BRENNEN GARCIA 08/30/16 11:53 Physical Therapy Evaluation and Treat [CONS] Routine Comment: Reason For Exam: s/p fall Primary care physician: REGISTERED MAIL CLERK Hospitalization Reason for admission: rhabdomyolysis Condition: Fair Hospital course: The patient is an 86-year-old male who presented through the emergency room withs/p fall. He got up and went back to the bedroom and fell again and family came back and found him on the floor, there is no history of chest pain no history of shortness of breath nausea or vomiting and no history of fever. However, patient was not sure that he lost consciousness. Patient was admitted with a diagnosis of rhabdomyolysis with a CK of 6660. Patient's CK returned to near normal range of 2160. Patient was treated with IV fluid hydration and supportive care. Patient had extensive workup including head CT, cervical spine CT, thoracic spine x-ray, x-ray and lumbar spine x-rays which were all found to be negative. Patient also had presyncope/syncope workup with carotid ultrasound that was found to be negative and echocardiogram which we followed up as an outpatient. Dedicated discharge time 31 minutes. Disposition: - TO HOME OR SELFCARE Time spent for discharge: 31 - Discharge Diagnoses (1) Fall Status: Acute Qualifiers: Encounter type: E (2) Rhabdomyolysis Status: Acute Qualifiers: Rhabdomyolysis type: R Encounter type: E (3) Weakness Status: Acute Core Measure Documentation - Palliative Care Palliative Care/ Comfort Measures: Not Applicable - Core Measures Any of the following diagnoses?: none Exam - Constitutional Vitals: Temp Pulse Resp BP Pulse Ox 100.0 F H 69 18 123/62 99 08/31/16 09:13 08/31/16 09:13 08/31/16 09:13 08/31/16 09:13 08/30/16 22:00 General appearance: Present: no acute distress, well-nourished - EENT Eyes: Present: PERRL ENT: hearing intact, clear oral mucosa - Neck Neck: Present: supple, normal ROM - Respiratory Respiratory effort: normal Respiratory: bilateral: CTA - Cardiovascular Heart Sounds: Present: S1 & S2. Absent: rub, click - Extremities Extremities: pulses symmetrical, No edema Peripheral Pulses: within normal limits - Abdominal General gastrointestinal: Present: soft, non-tender, non-distended, normal bowel sounds Male genitourinary: Present: normal - Integumentary Integumentary: Present: clear, warm, dry - Musculoskeletal Musculoskeletal: gait normal, strength equal bilaterally - Psychiatric Psychiatric: appropriate mood/affect, intact judgment & insight - Neurologic Neurologic: CNII-XII intact, moves all extremities Plan Activity: no restrictions Weight Bearing Status: Full Weight Bearing Diet: regular Follow up with: PRIMARY CARE, [Primary Care Provider] - 3-5 Days Forms: Warfarin Discharge Instruction Prescriptions: HYDROcodone/APAP 5-325 [[place] 5-325 mg TAB] 1 each PO Q6H PRN #20 tablet PRN Reason: Pain, Moderate (4-6)
--- NOTE | 2016-08-31 13:26 | Progress Note ---
Assessment and Plan Assessment and plan: Rhabdomyolysis. Resolving. Patient's CK<4000. Continue IV fluid hydration. Status post fall. PT evaluation. ? Syncope. Check echocardiogram and carotid ultrasound. Atrial fibrillation. Rate control. Continue medications. Fever. WBC normal. Check blood cultures. Speech eval to r/o silent aspiration. Hypertension. Resume antihypertensives and medications. Diabetes mellitus type II. Continue Accu-Cheks and sliding scale insulin. Debility. PT evaluation. Cough. Speech eval. - Patient Problems (1) Fall Current Visit: Yes Status: Acute Qualifiers: Encounter type: E (2) Rhabdomyolysis Current Visit: Yes Status: Acute Qualifiers: Rhabdomyolysis type: R Encounter type: E (3) Weakness Current Visit: Yes Status: Acute History Interval history: No new issues overnight. Niece reports pt. with frequent coughs ?swallowing issues Hospitalist Physical - Constitutional Vitals: Temp Pulse Resp BP Pulse Ox 100.0 F H 69 18 123/62 99 08/31/16 09:13 08/31/16 09:13 08/31/16 09:13 08/31/16 09:13 08/30/16 22:00 General appearance: Present: no acute distress, well-nourished - EENT Eyes: Present: PERRL, EOM intact ENT: hearing intact, clear oral mucosa, dentition normal - Neck Neck: Present: supple, normal ROM - Respiratory Respiratory effort: normal Respiratory: bilateral: CTA - Cardiovascular Rhythm: regular Heart Sounds: Present: S1 & S2. Absent: gallop, rub - Extremities Extremities: no ischemia, No edema, Full ROM - Abdominal General gastrointestinal: soft, non-tender, non-distended, normal bowel sounds - Integumentary Integumentary: Present: clear, warm, dry - Neurologic Neurologic: CNII-XII intact, moves all extremities Results - Labs CBC & Chem 7: 08/30/16 06:02 08/30/16 06:02 Labs: Laboratory Last Values WBC 8.8 K/mm3 (4.5-11.0) 08/30/16 06:02 RBC 3.68 M/mm3 (3.65-5.03) 08/30/16 06:02 Hgb 10.9 gm/dl (11.8-15.2) L 08/30/16 06:02 Hct 32.7 % (35.5-45.6) L D 08/30/16 06:02 MCV 89 fl (84-94) 08/30/16 06:02 MCH 30 pg (28-32) 08/30/16 06:02 MCHC 33 % (32-34) 08/30/16 06:02 RDW 15.3 % (13.2-15.2) H 08/30/16 06:02 Plt Count 150 K/mm3 (140-440) 08/30/16 06:02 Lymph % (Auto) 4.2 % (13.4-35.0) L 08/28/16 22:57 [place] % (Auto) 9.0 % (0.0-7.3) H 08/28/16 22:57 Eos % (Auto) 0.0 % (0.0-4.3) 08/28/16 22:57 Baso % (Auto) 0.0 % (0.0-1.8) 08/28/16 22:57 Lymph # 0.5 K/mm3 (1.2-5.4) L 08/28/16 22:57 [place] # 1.1 K/mm3 (0.0-0.8) H 08/28/16 22:57 Eos # 0.0 K/mm3 (0.0-0.4) 08/28/16 22:57 Baso # 0.0 K/mm3 (0.0-0.1) 08/28/16 22:57 Seg Neutrophils % 86.8 % (40.0-70.0) H 08/28/16 22:57 Seg Neutrophils # 10.6 K/mm3 (1.8-7.7) H 08/28/16 22:57 PT 24.3 Sec. (12.2-14.9) H 08/31/16 06:11 INR 2.06 (0.87-1.13) H 08/31/16 06:11 APTT 34.1 Sec. (24.2-36.6) 08/28/16 22:57 Sodium 139 mmol/L (137-145) 08/30/16 06:02 Potassium 3.7 mmol/L (3.6-5.0) 08/30/16 06:02 Chloride 104.1 mmol/L (98-107) 08/30/16 06:02 Carbon Dioxide 23 mmol/L (22-30) 08/30/16 06:02 Anion Gap 16 mmol/L 08/30/16 06:02 BUN 19 mg/dL (9-20) 08/30/16 06:02 Creatinine 1.0 mg/dL (0.8-1.5) 08/30/16 06:02 Estimated GFR > 60 ml/min 08/30/16 06:02 BUN/Creatinine Ratio 19.00 % 08/30/16 06:02 Glucose 110 mg/dL (75-100) H 08/30/16 06:02 POC Glucose 123 (70-105) H 08/31/16 11:45 Lactic Acid 1.60 mmol/L (0.7-2.0) 08/31/16 11:20 Calcium 7.6 mg/dL (8.4-10.2) L 08/30/16 06:02 Total Bilirubin 0.70 mg/dL (0.1-1.2) 08/28/16 22:57 AST 89 units/L (5-40) H 08/28/16 22:57 ALT 23 units/L (7-56) 08/28/16 22:57 Alkaline Phosphatase 47 units/L (35-129) 08/28/16 22:57 Total Creatine Kinase 2160 units/L (55-170) H 08/31/16 06:11 CK-MB (CK-2) 17.5 ng/mL (0.0-4.0) H 08/28/16 22:57 CK-MB (CK-2) Rel Index 0.2 (0-4) 08/28/16 22:57 Troponin T < 0.010 ng/mL (0.00-0.029) 08/28/16 22:57 Total Protein 6.6 g/dL (6.3-8.2) 08/28/16 22:57 Albumin 3.7 g/dL (3.9-5) L 08/28/16 22:57 Albumin/Globulin Ratio 1.3 % 08/28/16 22:57 Urine Color Yellow (Yellow) 08/28/16 Unknown Urine Turbidity Clear (Clear) 08/28/16 Unknown Urine pH 5.0 (5.0-7.0) 08/28/16 Unknown Ur Specific [place] 1.018 (1.003-1.030) 08/28/16 Unknown Urine Protein <15 mg/dl mg/dL (Negative) 08/28/16 Unknown Urine Glucose (UA) Neg mg/dL (Negative) 08/28/16 Unknown Urine Ketones Tr mg/dL (Negative) 08/28/16 Unknown Urine Blood Mod (Negative) 08/28/16 Unknown Urine Nitrite Neg (Negative) 08/28/16 Unknown Urine Bilirubin Neg (Negative) 08/28/16 Unknown Urine Urobilinogen < 2.0 mg/dL (<2.0) 08/28/16 Unknown Ur Leukocyte Esterase Neg (Negative) 08/28/16 Unknown Urine WBC (Auto) 1.0 /HPF (0.0-6.0) 08/28/16 Unknown Urine RBC (Auto) 2.0 /HPF (0.0-6.0) 08/28/16 Unknown Urine Bacteria (Auto) 1+ /HPF (Negative) 08/28/16 Unknown Urine Mucus Few /HPF 08/28/16 Unknown
[2016-08-31] MEDS: COUMADIN PO SCH (17:13)
[2016-09-01] MEDS: NACL 0.9% 1000 ML 1,000 ML IV SCH ×2 (02:01→17:13)
[2016-09-01 05:27] LABS: INR 2.45 (0.87-1.13)
[2016-09-01] MEDS: IMDUR PO SCH (09:39)
[2016-09-01] MEDS: CORDARONE PO SCH ×2 (09:41→22:04)
[2016-09-01] MEDS: DITROPAN PO SCH (09:41)
[2016-09-01] MEDS: FLOMAX PO SCH (09:41)
[2016-09-01] MEDS: LOPRESSOR PO SCH (09:41)
[2016-09-01] MEDS: GLUCOPHAGE PO SCH ×2 (09:41→22:03)
--- NOTE | 2016-09-01 12:06 | Progress Note ---
Assessment and Plan Assessment and plan: Rhabdomyolysis. Resolving. Patient's CK<4000. Continue IV fluid hydration. Status post fall. PT evaluation. ? Syncope. Echocardiogram and carotid ultrasound with normal limits Atrial fibrillation. Rate control. Continue medications. Fever. WBC normal. Follow-up blood cultures. Consider ID consultation if fever persists Hypertension. Resume antihypertensives and medications. Diabetes mellitus type II. Continue Accu-Cheks and sliding scale insulin. Debility. PT f/u Right arm pain. Right arm x-ray. - Patient Problems (1) Fall Current Visit: Yes Status: Acute Qualifiers: Encounter type: E (2) Rhabdomyolysis Current Visit: Yes Status: Acute Qualifiers: Rhabdomyolysis type: R Encounter type: E (3) Weakness Current Visit: Yes Status: Acute History Interval history: No new issues overnight. Patient reports right arm pain since the fall. Hospitalist Physical - Constitutional Vitals: Temp Pulse Resp BP Pulse Ox 99.5 F 71 20 139/70 99 09/01/16 09:46 09/01/16 09:46 09/01/16 09:46 09/01/16 09:46 08/31/16 22:00 General appearance: Present: no acute distress, well-nourished - EENT Eyes: Present: PERRL, EOM intact ENT: hearing intact, clear oral mucosa, dentition normal - Neck Neck: Present: supple, normal ROM - Respiratory Respiratory effort: normal Respiratory: bilateral: CTA - Cardiovascular Rhythm: regular Heart Sounds: Present: S1 & S2. Absent: gallop, rub - Extremities Extremities: no ischemia, No edema, Full ROM - Abdominal General gastrointestinal: soft, non-tender, non-distended, normal bowel sounds - Integumentary Integumentary: Present: clear, warm, dry - Neurologic Neurologic: CNII-XII intact, moves all extremities Results - Labs CBC & Chem 7: 08/30/16 06:02 08/30/16 06:02 Labs: Laboratory Last Values WBC 8.8 K/mm3 (4.5-11.0) 08/30/16 06:02 RBC 3.68 M/mm3 (3.65-5.03) 08/30/16 06:02 Hgb 10.9 gm/dl (11.8-15.2) L 08/30/16 06:02 Hct 32.7 % (35.5-45.6) L D 08/30/16 06:02 MCV 89 fl (84-94) 08/30/16 06:02 MCH 30 pg (28-32) 08/30/16 06:02 MCHC 33 % (32-34) 08/30/16 06:02 RDW 15.3 % (13.2-15.2) H 08/30/16 06:02 Plt Count 150 K/mm3 (140-440) 08/30/16 06:02 Lymph % (Auto) 4.2 % (13.4-35.0) L 08/28/16 22:57 [place] % (Auto) 9.0 % (0.0-7.3) H 08/28/16 22:57 Eos % (Auto) 0.0 % (0.0-4.3) 08/28/16 22:57 Baso % (Auto) 0.0 % (0.0-1.8) 08/28/16 22:57 Lymph # 0.5 K/mm3 (1.2-5.4) L 08/28/16 22:57 [place] # 1.1 K/mm3 (0.0-0.8) H 08/28/16 22:57 Eos # 0.0 K/mm3 (0.0-0.4) 08/28/16 22:57 Baso # 0.0 K/mm3 (0.0-0.1) 08/28/16 22:57 Seg Neutrophils % 86.8 % (40.0-70.0) H 08/28/16 22:57 Seg Neutrophils # 10.6 K/mm3 (1.8-7.7) H 08/28/16 22:57 PT 27.9 Sec. (12.2-14.9) H 09/01/16 04:45 INR 2.45 (0.87-1.13) H 09/01/16 04:45 APTT 34.1 Sec. (24.2-36.6) 08/28/16 22:57 Sodium 139 mmol/L (137-145) 08/30/16 06:02 Potassium 3.7 mmol/L (3.6-5.0) 08/30/16 06:02 Chloride 104.1 mmol/L (98-107) 08/30/16 06:02 Carbon Dioxide 23 mmol/L (22-30) 08/30/16 06:02 Anion Gap 16 mmol/L 08/30/16 06:02 BUN 19 mg/dL (9-20) 08/30/16 06:02 Creatinine 1.0 mg/dL (0.8-1.5) 08/30/16 06:02 Estimated GFR > 60 ml/min 08/30/16 06:02 BUN/Creatinine Ratio 19.00 % 08/30/16 06:02 Glucose 110 mg/dL (75-100) H 08/30/16 06:02 POC Glucose 146 (70-105) H 09/01/16 11:29 Lactic Acid 2.70 mmol/L (0.7-2.0) H* 09/01/16 10:25 Calcium 7.6 mg/dL (8.4-10.2) L 08/30/16 06:02 Total Bilirubin 0.70 mg/dL (0.1-1.2) 08/28/16 22:57 AST 89 units/L (5-40) H 08/28/16 22:57 ALT 23 units/L (7-56) 08/28/16 22:57 Alkaline Phosphatase 47 units/L (35-129) 08/28/16 22:57 Total Creatine Kinase 2160 units/L (55-170) H 08/31/16 06:11 CK-MB (CK-2) 17.5 ng/mL (0.0-4.0) H 08/28/16 22:57 CK-MB (CK-2) Rel Index 0.2 (0-4) 08/28/16 22:57 Troponin T < 0.010 ng/mL (0.00-0.029) 08/28/16 22:57 Total Protein 6.6 g/dL (6.3-8.2) 08/28/16 22:57 Albumin 3.7 g/dL (3.9-5) L 08/28/16 22:57 Albumin/Globulin Ratio 1.3 % 08/28/16 22:57 Urine Color Yellow (Yellow) 08/28/16 Unknown Urine Turbidity Clear (Clear) 08/28/16 Unknown Urine pH 5.0 (5.0-7.0) 08/28/16 Unknown Ur Specific [place] 1.018 (1.003-1.030) 08/28/16 Unknown Urine Protein <15 mg/dl mg/dL (Negative) 08/28/16 Unknown Urine Glucose (UA) Neg mg/dL (Negative) 08/28/16 Unknown Urine Ketones Tr mg/dL (Negative) 08/28/16 Unknown Urine Blood Mod (Negative) 08/28/16 Unknown Urine Nitrite Neg (Negative) 08/28/16 Unknown Urine Bilirubin Neg (Negative) 08/28/16 Unknown Urine Urobilinogen < 2.0 mg/dL (<2.0) 08/28/16 Unknown Ur Leukocyte Esterase Neg (Negative) 08/28/16 Unknown Urine WBC (Auto) 1.0 /HPF (0.0-6.0) 08/28/16 Unknown Urine RBC (Auto) 2.0 /HPF (0.0-6.0) 08/28/16 Unknown Urine Bacteria (Auto) 1+ /HPF (Negative) 08/28/16 Unknown Urine Mucus Few /HPF 08/28/16 Unknown
--- NOTE | 2016-09-01 13:39 | XRay Report ---
Right hand 3 views: History: Fall. Findings: No evidence of acute fracture or dislocation. No periosteal reaction or lytic lesion. Impression: No evidence of acute fracture.
--- NOTE | 2016-09-01 15:26 | Cat Scan Report ---
CT scan of head without contrast: History: Fall. Findings: Ventricles are normal in size and midline in location. No evidence of acute ischemia, hemorrhage or mass. No extra-axial fluid collection. Moderate volume loss. Normal sinuses and mastoid air cells. Normal calvarium. Impression: Moderate volume loss. No acute intracranial abnormality.
--- NOTE | 2016-09-01 16:43 | Vascular Lab Report ---
CAROTID DUPLEX STUDY: RIGHT PSVEDV CCA PROX:115 7 CCA DIST:24719 ICA PROX:07540 ICA MID: 8218 ICA DIST: 7114 ECA: 66700 VERT: 91 15 LEFT PSVEDV CCA PROX:34525 CCA DIST:09632 ICA PROX:09779 ICA MID: 9020 ICA DIST: 8214 ECA: 76574 VERT: 65 14 REASON FOR EXAM: Carotid artery stenosis/presyncopal episode. COMMENTS ON THE RIGHT: Doppler frequency analysis is consistent with 16 to 49 percent diameter reduction of the internal carotid artery. Minimal amount of plaque is seen. The common carotid artery is patent. The external carotid artery is patent. The vertebral artery has antegrade flow. COMMENTS ON THE LEFT: Doppler frequency analysis is consistent with 16 to 49 percent diameter reduction of the internal carotid artery. Minimal amount of plaque is seen. The common carotid artery is patent. The external carotid artery is patent. The vertebral artery has antegrade flow. IMPRESSION: Less than 50% diameter reduction in the internal carotid arteries bilaterally. Consider repeat carotid artery duplex in 12 months.
[2016-09-01] MEDS: COUMADIN PO SCH (17:01)
[2016-09-01] MEDS: NORCO 5/325 PO PRN (23:04)
[2016-09-02 08:13] LABS: Basophils % (Auto) 0.2 % (0.0-1.8); Eosinophils % (Auto) 1.3 % (0.0-4.3); Hemoglobin 10.6 gm/dl (11.8-15.2); Mean Corpuscular HGB Conc 33 % (32-34); Mean Corpuscular Hemoglobin 30 pg (28-32); Mean Corpuscular Volume 90 fl (84-94); Platelet Count 182 K/mm3 (140-440); Red Blood Count 3.57 M/mm3 (3.65-5.03); Red Cell Distribution Width 14.9 % (13.2-15.2); White Blood Count 7.9 K/mm3 (4.5-11.0)
[2016-09-02 08:20] LABS: Anion Gap 16 mmol/L; BUN/Creatinine Ratio 25.71; Blood Urea Nitrogen 18 mg/dL (9-20); Calcium 7.7 mg/dL (8.4-10.2); Carbon Dioxide 23 mmol/L (22-30); Chloride 103.7 mmol/L (98-107); Glucose 95 mg/dL (75-100); Potassium 3.5 mmol/L (3.6-5.0); Sodium 139 mmol/L (137-145)
[2016-09-02 08:57] LABS: INR 3.49 (0.87-1.13)
[2016-09-02] MEDS: IMDUR PO SCH (10:06)
[2016-09-02] MEDS: CORDARONE PO SCH ×2 (10:06→23:01)
[2016-09-02] MEDS: GLUCOPHAGE PO SCH ×2 (10:06→23:01)
[2016-09-02] MEDS: FLOMAX PO SCH (10:06)
[2016-09-02] MEDS: DITROPAN PO SCH (10:06)
[2016-09-02] MEDS: LOPRESSOR PO SCH (10:13)
[2016-09-02] MEDS: NACL 0.9% 1000 ML 1,000 ML IV SCH (10:13)
--- NOTE | 2016-09-02 12:16 | Progress Note ---
Assessment and Plan Assessment and plan: Rhabdomyolysis. Resolving. Patient's CK<4000. Continue IV fluid hydration. Status post fall. PT evaluation. ? Syncope. Echocardiogram and carotid ultrasound with normal limits Atrial fibrillation. Rate control. Continue medications. Fever. WBC normal. Follow-up blood cultures. Consider ID consultation if fever persists Hypertension. Resume antihypertensives and medications. Diabetes mellitus type II. Continue Accu-Cheks and sliding scale insulin. Debility. PT f/u Right arm pain. Right arm x-ray. - Patient Problems (1) Fall Current Visit: Yes Status: Acute Qualifiers: Encounter type: E (2) Rhabdomyolysis Current Visit: Yes Status: Acute Qualifiers: Rhabdomyolysis type: R Encounter type: E (3) Weakness Current Visit: Yes Status: Acute History Interval history: No new issues overnight. Patient still low-grade fevers Hospitalist Physical - Constitutional Vitals: Temp Pulse Resp BP Pulse Ox 99.3 F 78 20 121/70 97 09/02/16 10:00 09/02/16 10:13 09/02/16 10:00 09/02/16 10:09/02/16 10:00 General appearance: Present: no acute distress, well-nourished - EENT Eyes: Present: PERRL, EOM intact ENT: hearing intact, clear oral mucosa, dentition normal - Neck Neck: Present: supple, normal ROM - Respiratory Respiratory effort: normal Respiratory: bilateral: CTA - Cardiovascular Rhythm: regular Heart Sounds: Present: S1 & S2. Absent: gallop, rub - Extremities Extremities: no ischemia, No edema, Full ROM - Abdominal General gastrointestinal: soft, non-tender, non-distended, normal bowel sounds - Integumentary Integumentary: Present: clear, warm, dry - Neurologic Neurologic: CNII-XII intact, moves all extremities Results - Labs CBC & Chem 7: 09/02/16 07:20 09/02/16 07:20 Labs: Laboratory Last Values WBC 7.9 K/mm3 (4.5-11.0) 09/02/16 07:20 RBC 3.57 M/mm3 (3.65-5.03) L 09/02/16 07:20 Hgb 10.6 gm/dl (11.8-15.2) L 09/02/16 07:20 Hct 32.0 % (35.5-45.6) L 09/02/16 07:20 MCV 90 fl (84-94) 09/02/16 07:20 MCH 30 pg (28-32) 09/02/16 07:20 MCHC 33 % (32-34) 09/02/16 07:20 RDW 14.9 % (13.2-15.2) 09/02/16 07:20 Plt Count 182 K/mm3 (140-440) 09/02/16 07:20 Lymph % (Auto) 7.9 % (13.4-35.0) L 09/02/16 07:20 [place] % (Auto) 11.0 % (0.0-7.3) H 09/02/16 07:20 Eos % (Auto) 1.3 % (0.0-4.3) 09/02/16 07:20 Baso % (Auto) 0.2 % (0.0-1.8) 09/02/16 07:20 Lymph # 0.6 K/mm3 (1.2-5.4) L 09/02/16 07:20 [place] # 0.9 K/mm3 (0.0-0.8) H 09/02/16 07:20 Eos # 0.1 K/mm3 (0.0-0.4) 09/02/16 07:20 Baso # 0.0 K/mm3 (0.0-0.1) 09/02/16 07:20 Seg Neutrophils % 79.6 % (40.0-70.0) H 09/02/16 07:20 Seg Neutrophils # 6.3 K/mm3 (1.8-7.7) 09/02/16 07:20 PT 35.3 Sec. (12.2-14.9) H 09/02/16 07:20 INR 3.49 (0.87-1.13) H 09/02/16 07:20 APTT 34.1 Sec. (24.2-36.6) 08/28/16 22:57 Sodium 139 mmol/L (137-145) 09/02/16 07:20 Potassium 3.5 mmol/L (3.6-5.0) L 09/02/16 07:20 Chloride 103.7 mmol/L (98-107) 09/02/16 07:20 Carbon Dioxide 23 mmol/L (22-30) 09/02/16 07:20 Anion Gap 16 mmol/L 09/02/16 07:20 BUN 18 mg/dL (9-20) 09/02/16 07:20 Creatinine 0.7 mg/dL (0.8-1.5) L 09/02/16 07:20 Estimated GFR > 60 ml/min 09/02/16 07:20 BUN/Creatinine Ratio 25.71 % 09/02/16 07:20 Glucose 95 mg/dL (75-100) 09/02/16 07:20 POC Glucose 108 (70-105) H 09/02/16 07:09 Lactic Acid 2.70 mmol/L (0.7-2.0) H* 09/01/16 10:25 Calcium 7.7 mg/dL (8.4-10.2) L 09/02/16 07:20 Total Bilirubin 0.70 mg/dL (0.1-1.2) 08/28/16 22:57 AST 89 units/L (5-40) H 08/28/16 22:57 ALT 23 units/L (7-56) 08/28/16 22:57 Alkaline Phosphatase 47 units/L (35-129) 08/28/16 22:57 Total Creatine Kinase 2160 units/L (55-170) H 08/31/16 06:11 CK-MB (CK-2) 17.5 ng/mL (0.0-4.0) H 08/28/16 22:57 CK-MB (CK-2) Rel Index 0.2 (0-4) 08/28/16 22:57 Troponin T < 0.010 ng/mL (0.00-0.029) 08/28/16 22:57 Total Protein 6.6 g/dL (6.3-8.2) 08/28/16 22:57 Albumin 3.7 g/dL (3.9-5) L 08/28/16 22:57 Albumin/Globulin Ratio 1.3 % 08/28/16 22:57 Urine Color Yellow (Yellow) 08/28/16 Unknown Urine Turbidity Clear (Clear) 08/28/16 Unknown Urine pH 5.0 (5.0-7.0) 08/28/16 Unknown Ur Specific [place] 1.018 (1.003-1.030) 08/28/16 Unknown Urine Protein <15 mg/dl mg/dL (Negative) 08/28/16 Unknown Urine Glucose (UA) Neg mg/dL (Negative) 08/28/16 Unknown Urine Ketones Tr mg/dL (Negative) 08/28/16 Unknown Urine Blood Mod (Negative) 08/28/16 Unknown Urine Nitrite Neg (Negative) 08/28/16 Unknown Urine Bilirubin Neg (Negative) 08/28/16 Unknown Urine Urobilinogen < 2.0 mg/dL (<2.0) 08/28/16 Unknown Ur Leukocyte Esterase Neg (Negative) 08/28/16 Unknown Urine WBC (Auto) 1.0 /HPF (0.0-6.0) 08/28/16 Unknown Urine RBC (Auto) 2.0 /HPF (0.0-6.0) 08/28/16 Unknown Urine Bacteria (Auto) 1+ /HPF (Negative) 08/28/16 Unknown Urine Mucus Few /HPF 08/28/16 Unknown
[2016-09-02] MEDS: CHLORASEPTIC MM PRN ×2 (13:27→23:02)
[2016-09-03 05:20] LABS: Basophils % (Auto) 0.2 % (0.0-1.8); Eosinophils % (Auto) 1.9 % (0.0-4.3); Hematocrit 31.7 % (35.5-45.6); Hemoglobin 10.8 gm/dl (11.8-15.2); Mean Corpuscular HGB Conc 34 % (32-34); Mean Corpuscular Hemoglobin 30 pg (28-32); Mean Corpuscular Volume 88 fl (84-94); Platelet Count 210 K/mm3 (140-440); Red Blood Count 3.58 M/mm3 (3.65-5.03); Red Cell Distribution Width 14.7 % (13.2-15.2)
[2016-09-03 05:35] LABS: Anion Gap 19 mmol/L; Blood Urea Nitrogen 20 mg/dL (9-20); Calcium 7.8 mg/dL (8.4-10.2); Carbon Dioxide 20 mmol/L (22-30); Chloride 106.9 mmol/L (98-107); Glucose 90 mg/dL (75-100); Potassium 3.4 mmol/L (3.6-5.0); Sodium 142 mmol/L (137-145)
[2016-09-03 05:39] LABS: INR 3.4 (0.87-1.13)
[2016-09-03] MEDS: FLOMAX PO SCH (10:45)
[2016-09-03] MEDS: GLUCOPHAGE PO SCH ×2 (10:45→22:26)
[2016-09-03] MEDS: CORDARONE PO SCH ×2 (10:45→22:25)
[2016-09-03] MEDS: DITROPAN PO SCH (10:46)
[2016-09-03] MEDS: LOPRESSOR PO SCH (10:48)
[2016-09-03] MEDS: IMDUR PO SCH (10:49)
--- NOTE | 2016-09-03 10:50 | Discharge Summary ---
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 He got up and went back to the bedroom and fell again and family came back and found him on the floor, there is no history of chest pain no history of shortness of breath nausea or vomiting and no history of fever. However, patient was not sure that he lost consciousness. Patient was admitted with a diagnosis of rhabdomyolysis with a CK of 6660. Patient's CK returned to near normal range of 2160. Patient was treated with IV fluid hydration and supportive care. Patient had extensive workup including head CT, cervical spine CT, thoracic spine x-ray, x-ray and lumbar spine x-rays which were all found to be negative. Patient also had presyncope/syncope workup with carotid ultrasound and echocardiogram that was found to be negative. Patient did have a spike in temperature and workup with blood cultures to rule out bacteremia. Blood cultures found to be negative. Patient was treated with empiric IV antibiotics and stabilized. Case management was consulted for discharge planning. Patient met criteria and family opted for SNF placement. Therefore patient will be discharged to rehabilitation facility. Dedicated discharge time 31 minutes. Disposition: [id number] SNF [facility] - Discharge Diagnoses (1) Fall Status: Acute Qualifiers: Encounter type: E (2) Rhabdomyolysis Status: Acute Qualifiers: Rhabdomyolysis type: R Encounter type: E (3) Weakness Status: Acute Core Measure Documentation - Palliative Care Palliative Care/ Comfort Measures: Not Applicable - Core Measures Any of the following diagnoses?: none Exam - Constitutional Vitals: Temp Pulse Resp BP Pulse Ox 99.4 F 72 20 133/53 20 L 09/02/16 22:00 09/02/16 22:00 09/02/16 22:00 09/02/16 22:00 09/02/16 22:00 General appearance: Present: no acute distress, well-nourished - EENT Eyes: Present: PERRL ENT: hearing intact, clear oral mucosa - Neck Neck: Present: supple, normal ROM - Respiratory Respiratory effort: normal Respiratory: bilateral: CTA - Cardiovascular Heart Sounds: Present: S1 & S2. Absent: rub, click - Extremities Extremities: pulses symmetrical, No edema Peripheral Pulses: within normal limits - Abdominal General gastrointestinal: Present: soft, non-tender, non-distended, normal bowel sounds Male genitourinary: Present: normal - Integumentary Integumentary: Present: clear, warm, dry - Musculoskeletal Musculoskeletal: gait normal, strength equal bilaterally - Psychiatric Psychiatric: appropriate mood/affect, intact judgment & insight - Neurologic Neurologic: CNII-XII intact, moves all extremities Plan Activity: no restrictions Weight Bearing Status: Weight Bear as Tolerated Diet: regular Follow up with: PRIMARY CARE, [Primary Care Provider] - 3-5 Days Forms: Warfarin Discharge Instruction Prescriptions: HYDROcodone/APAP 5-325 [[place] 5-325 mg TAB] 1 each PO Q6H PRN #20 tablet PRN Reason: Pain, Moderate (4-6) Levofloxacin [Levaquin TAB] 500 mg PO QDAY #7 tablet
[2016-09-04 08:08] LABS: Basophils % (Auto) 0.3 % (0.0-1.8); Eosinophils % (Auto) 1.9 % (0.0-4.3); Hematocrit 34.5 % (35.5-45.6); Hemoglobin 11.7 gm/dl (11.8-15.2); Mean Corpuscular HGB Conc 34 % (32-34); Mean Corpuscular Hemoglobin 30 pg (28-32); Mean Corpuscular Volume 88 fl (84-94); Platelet Count 265 K/mm3 (140-440); Red Blood Count 3.91 M/mm3 (3.65-5.03); Red Cell Distribution Width 14.7 % (13.2-15.2); White Blood Count 7.5 K/mm3 (4.5-11.0)
[2016-09-04 08:19] LABS: INR 3.02 (0.87-1.13)
[2016-09-04 08:26] LABS: Anion Gap 19 mmol/L; BUN/Creatinine Ratio 21.25; Blood Urea Nitrogen 17 mg/dL (9-20); Carbon Dioxide 21 mmol/L (22-30); Chloride 104.6 mmol/L (98-107); Creatine Kinase 193 units/L (55-170); Glucose 101 mg/dL (75-100); Potassium 3.8 mmol/L (3.6-5.0); Sodium 141 mmol/L (137-145)
[2016-09-04] MEDS: CORDARONE PO SCH ×2 (09:54→21:48)
[2016-09-04] MEDS: FLOMAX PO SCH (09:54)
[2016-09-04] MEDS: DITROPAN PO SCH (09:54)
[2016-09-04] MEDS: IMDUR PO SCH (09:55)
[2016-09-04] MEDS: LOPRESSOR PO SCH (09:57)
--- NOTE | 2016-09-04 12:24 | Progress Note ---
Assessment and Plan Rhabdomyolysis. Resolving. Patient's CK nl 193. Continue IV fluid hydration. Status post fall. ? Syncope. Echocardiogram and carotid ultrasound with normal limits Atrial fibrillation. Rate control. Continue medications. Fever. Resolved. Blood cultures negative. Hypertension. Resume antihypertensives and medications. Diabetes mellitus type II. Continue Accu-Cheks and sliding scale insulin. - Patient Problems (1) Fall Current Visit: Yes Status: Acute Qualifiers: Encounter type: E (2) Rhabdomyolysis Current Visit: Yes Status: Acute Qualifiers: Rhabdomyolysis type: R Encounter type: E (3) Weakness Current Visit: Yes Status: Acute Subjective Date of service: 09/03/16 Interval history: No new issues overnight. Objective - Constitutional Vitals: Vital Signs - 12hr 09/04/16 09/04/16 09/04/16 07:59 09:55 09:57 Pulse Rate 72 72 Pulse Rate [ 72 From Monitor] Blood Pressure 138/62 138/62 General appearance: Present: no acute distress, well-nourished - EENT Eyes: PERRL, EOM intact ENT: hearing intact, clear oral mucosa Ears: bilateral: normal - Neck Neck: supple, normal ROM - Respiratory Respiratory effort: normal Respiratory: bilateral: CTA - Breasts Breasts: normal - Cardiovascular Rhythm: regular Heart Sounds: Present: S1 & S2. Absent: gallop, rub Extremities: pulses intact, No edema, normal color, Full ROM - Gastrointestinal General gastrointestinal: Present: soft, non-tender, non-distended, normal bowel sounds - Genitourinary Male genitourinary: normal - Integumentary Integumentary: clear, warm, dry - Musculoskeletal Musculoskeletal: 1, strength equal bilaterally - Neurologic Neurologic: moves all extremities - Psychiatric Psychiatric: memory intact, appropriate mood/affect, intact judgment & insight - Labs CBC & Chem 7: 09/04/16 07:11 09/04/16 07:11 Labs: Abnormal lab results 09/03/16 09/03/16 09/03/16 Range/Units 11:31 16:19 22:24 Hgb (11.8-15.2) gm/dl Hct (35.5-45.6) % Lymph % (Auto) (13.4-35.0) % [place] % (Auto) (0.0-7.3) % Lymph # (1.2-5.4) K/mm3 Seg Neutrophils % (40.0-70.0) % PT (12.2-14.9) Sec. INR (0.87-1.13) Carbon Dioxide (22-30) mmol/L Glucose (75-100) mg/dL POC Glucose 140 H 118 H 108 H (70-105) Calcium (8.4-10.2) mg/dL Total Creatine Kinase (55-170) units/L 09/04/16 09/04/16 09/04/16 Range/Units 07:11 07:11 07:11 Hgb 11.7 L (11.8-15.2) gm/dl Hct 34.5 L (35.5-45.6) % Lymph % (Auto) 10.8 L (13.4-35.0) % [place] % (Auto) 10.5 H (0.0-7.3) % Lymph # 0.8 L (1.2-5.4) K/mm3 Seg Neutrophils % 76.5 H (40.0-70.0) % PT 31.5 H (12.2-14.9) Sec. INR 3.02 H (0.87-1.13) Carbon Dioxide 21 L (22-30) mmol/L Glucose 101 H (75-100) mg/dL POC Glucose (70-105) Calcium 8.0 L (8.4-10.2) mg/dL Total Creatine Kinase 193 H (55-170) units/L 09/04/16 Range/Units 11:24 Hgb (11.8-15.2) gm/dl Hct (35.5-45.6) % Lymph % (Auto) (13.4-35.0) % [place] % (Auto) (0.0-7.3) % Lymph # (1.2-5.4) K/mm3 Seg Neutrophils % (40.0-70.0) % PT (12.2-14.9) Sec. INR (0.87-1.13) Carbon Dioxide (22-30) mmol/L Glucose (75-100) mg/dL POC Glucose 125 H (70-105) Calcium (8.4-10.2) mg/dL Total Creatine Kinase (55-170) units/L
--- NOTE | 2016-09-04 12:26 | Progress Note ---
Assessment and Plan Assessment and plan: Rhabdomyolysis. Resolving. Patient's CK nl 193. Continue IV fluid hydration. Status post fall. ? Syncope. Echocardiogram and carotid ultrasound with normal limits Atrial fibrillation. Rate controlled with amiodarone. Continue medications. Coumadin currently on hold. Coagulopathy/supratherapeutic INR. Continue to hold Coumadin per pharmacy recommendations. Fever. Resolved. Blood cultures negative. Hypertension. Resume antihypertensives and medications. Diabetes mellitus type II. Continue Accu-Cheks and sliding scale insulin. - Patient Problems (1) Fall Current Visit: Yes Status: Acute Qualifiers: Encounter type: E (2) Rhabdomyolysis Current Visit: Yes Status: Acute Qualifiers: Rhabdomyolysis type: R Encounter type: E (3) Weakness Current Visit: Yes Status: Acute History Interval history: No new issues overnight. Hospitalist Physical - Constitutional Vitals: Temp Pulse Resp BP Pulse Ox 99.6 F 72 20 138/62 97 09/03/16 20:00 09/04/16 09:57 09/03/16 20:00 09/04/16 09:57 09/03/16 20:00 General appearance: Present: no acute distress, well-nourished - EENT Eyes: Present: PERRL, EOM intact ENT: hearing intact, clear oral mucosa, dentition normal - Neck Neck: Present: supple, normal ROM - Respiratory Respiratory effort: normal Respiratory: bilateral: CTA - Cardiovascular Rhythm: regular Heart Sounds: Present: S1 & S2. Absent: gallop, rub - Extremities Extremities: no ischemia, No edema, Full ROM - Abdominal General gastrointestinal: soft, non-tender, non-distended, normal bowel sounds - Integumentary Integumentary: Present: clear, warm, dry - Neurologic Neurologic: CNII-XII intact, moves all extremities Results - Labs CBC & Chem 7: 09/04/16 07:11 09/04/16 07:11 Labs: Laboratory Last Values WBC 7.5 K/mm3 (4.5-11.0) 09/04/16 07:11 RBC 3.91 M/mm3 (3.65-5.03) 09/04/16 07:11 Hgb 11.7 gm/dl (11.8-15.2) L 09/04/16 07:11 Hct 34.5 % (35.5-45.6) L 09/04/16 07:11 MCV 88 fl (84-94) 09/04/16 07:11 MCH 30 pg (28-32) 09/04/16 07:11 MCHC 34 % (32-34) 09/04/16 07:11 RDW 14.7 % (13.2-15.2) 09/04/16 07:11 Plt Count 265 K/mm3 (140-440) 09/04/16 07:11 Lymph % (Auto) 10.8 % (13.4-35.0) L 09/04/16 07:11 [place] % (Auto) 10.5 % (0.0-7.3) H 09/04/16 07:11 Eos % (Auto) 1.9 % (0.0-4.3) 09/04/16 07:11 Baso % (Auto) 0.3 % (0.0-1.8) 09/04/16 07:11 Lymph # 0.8 K/mm3 (1.2-5.4) L 09/04/16 07:11 [place] # 0.8 K/mm3 (0.0-0.8) 09/04/16 07:11 Eos # 0.1 K/mm3 (0.0-0.4) 09/04/16 07:11 Baso # 0.0 K/mm3 (0.0-0.1) 09/04/16 07:11 Seg Neutrophils % 76.5 % (40.0-70.0) H 09/04/16 07:11 Seg Neutrophils # 5.7 K/mm3 (1.8-7.7) 09/04/16 07:11 PT 31.5 Sec. (12.2-14.9) H 09/04/16 07:11 INR 3.02 (0.87-1.13) H 09/04/16 07:11 APTT 34.1 Sec. (24.2-36.6) 08/28/16 22:57 Sodium 141 mmol/L (137-145) 09/04/16 07:11 Potassium 3.8 mmol/L (3.6-5.0) 09/04/16 07:11 Chloride 104.6 mmol/L (98-107) 09/04/16 07:11 Carbon Dioxide 21 mmol/L (22-30) L 09/04/16 07:11 Anion Gap 19 mmol/L 09/04/16 07:11 BUN 17 mg/dL (9-20) 09/04/16 07:11 Creatinine 0.8 mg/dL (0.8-1.5) 09/04/16 07:11 Estimated GFR > 60 ml/min 09/04/16 07:11 BUN/Creatinine Ratio 21.25 % 09/04/16 07:11 Glucose 101 mg/dL (75-100) H 09/04/16 07:11 POC Glucose 125 (70-105) H 09/04/16 11:24 Lactic Acid 1.10 mmol/L (0.7-2.0) 09/03/16 04:27 Calcium 8.0 mg/dL (8.4-10.2) L 09/04/16 07:11 Total Bilirubin 0.70 mg/dL (0.1-1.2) 08/28/16 22:57 AST 89 units/L (5-40) H 08/28/16 22:57 ALT 23 units/L (7-56) 08/28/16 22:57 Alkaline Phosphatase 47 units/L (35-129) 08/28/16 22:57 Total Creatine Kinase 193 units/L (55-170) H 09/04/16 07:11 CK-MB (CK-2) 17.5 ng/mL (0.0-4.0) H 08/28/16 22:57 CK-MB (CK-2) Rel Index 0.2 (0-4) 08/28/16 22:57 Troponin T < 0.010 ng/mL (0.00-0.029) 08/28/16 22:57 Total Protein 6.6 g/dL (6.3-8.2) 08/28/16 22:57 Albumin 3.7 g/dL (3.9-5) L 08/28/16 22:57 Albumin/Globulin Ratio 1.3 % 08/28/16 22:57 Urine Color Yellow (Yellow) 08/28/16 Unknown Urine Turbidity Clear (Clear) 08/28/16 Unknown Urine pH 5.0 (5.0-7.0) 08/28/16 Unknown Ur Specific [place] 1.018 (1.003-1.030) 08/28/16 Unknown Urine Protein <15 mg/dl mg/dL (Negative) 08/28/16 Unknown Urine Glucose (UA) Neg mg/dL (Negative) 08/28/16 Unknown Urine Ketones Tr mg/dL (Negative) 08/28/16 Unknown Urine Blood Mod (Negative) 08/28/16 Unknown Urine Nitrite Neg (Negative) 08/28/16 Unknown Urine Bilirubin Neg (Negative) 08/28/16 Unknown Urine Urobilinogen < 2.0 mg/dL (<2.0) 08/28/16 Unknown Ur Leukocyte Esterase Neg (Negative) 08/28/16 Unknown Urine WBC (Auto) 1.0 /HPF (0.0-6.0) 08/28/16 Unknown Urine RBC (Auto) 2.0 /HPF (0.0-6.0) 08/28/16 Unknown Urine Bacteria (Auto) 1+ /HPF (Negative) 08/28/16 Unknown Urine Mucus Few /HPF 08/28/16 Unknown
[2016-09-04] MEDS: NORCO 5/325 PO PRN ×2 (14:53→21:48)
[2016-09-04] MEDS: GLUCOPHAGE PO SCH (17:10)
[2016-09-05 05:36] LABS: INR 2.98 (0.87-1.13)
[2016-09-05] MEDS: IMDUR PO SCH (09:36)
[2016-09-05] MEDS: LOPRESSOR PO SCH (09:36)
[2016-09-05] MEDS: GLUCOPHAGE PO SCH ×2 (10:32→17:54)
[2016-09-05] MEDS: DITROPAN PO SCH (10:33)
[2016-09-05] MEDS: FLOMAX PO SCH (10:33)
[2016-09-05] MEDS: CORDARONE PO SCH ×2 (10:33→22:11)
--- NOTE | 2016-09-05 11:12 | Query-Hypercoagulopathy ---
[place] Date: 09/05/2016 Reconstructive Dentist/CDS:___Antonia Phone#:____[phone] Exercise your independent professional judgment when responding to query. Questions asked do not imply a particular answer is desired or expected. We greatly appreciate your clarification on this issue. Clinical Documentation States: 86 Year old male was admitted on 08/29/2015. The discharge summary on 08/31/2016 states "The patient is an 86-year-old male who presented through the emergency room with s/p fall. He got up and went back to the bedroom and fell again and family came back and found him on the floor, there is no history of chest pain no history of shortness of breath nausea or vomiting and no history of fever. However, patient was not sure that he lost consciousness. Patient was admitted with a diagnosis of rhabdomyolysis with a CK of 6660. Patient's CK returned to near normal range of 2160." The Hospitalist note on 09/04/2016 states "Atrial fibrillation. Rate controlled with amiodarone. Continue medications. Coumadin currently on hold. Coagulopathy/supratherapeutic INR. Continue to hold Coumadin per pharmacy recommendations." Please clarify if the patient has any of the following condition/s: [ ] Primary Hypercoagulopathy due to: [ ] Factor V Leiden [ ] Protein C/S deficiency [ ] Prothrombin G 24371E (Factor II mutation) [ ] Antithrombin III (AT III) deficiency [ ] Sickle cell anemia and other hemolytic anemias [ ] Lupus anticoagulant [ ] Unable to determine [ ] Secondary Hypercoagulopathy due to: [ ] Advanced age [ ] Atrial Fibrillation [ ] Diabetic Ketoacidosis (DKA) [ ] [ ] Oral contraceptives [ ] Hormonal replacement use [ ] Heparin Induced Thrombocytopenia (HIT) [ ] Severe Nephrotic Syndrome (Albumin < 2.5g/dl) [ ] Unable to determine [ ] Other: [ ] Comment/Explanation: Present on admission: [ ] Yes (Y) [ ] Clinically undeterminable (W) [ ] No (N) Please also document response in your Progress Notes and/or Discharge Summary and indicate if the condition was present on admission. MTDD
[2016-09-05] MEDS: COUMADIN PO SCH (17:54)
[2016-09-05] MEDS: NORCO 5/325 PO PRN (22:10)
[2016-09-06 04:25] LABS: INR 2.45 (0.87-1.13)
--- NOTE | 2016-09-06 10:09 | Discharge Summary ---
Providers - Providers Date of Admission: 08/29/16 04:41 Attending physician: JOANNE XIAO MD 08/30/16 11:53 Physical Therapy Evaluation and Treat [CONS] Routine Comment: Reason For Exam: s/p fall 08/31/16 13:19 Speech Therapy Evaluation and Treat [CONS] Routine Reason For Exam: cough r/o silent aspiration Primary care physician: BOARD [employer]NER Hospitalization Condition: Fair Hospital course: The patient is an 86-year-old male who presented through the emergency room with s/p fall. He got up and went back to the bedroom and fell again and family came back and found him on the floor, there is no history of chest pain no history of shortness of breath nausea or vomiting and no history of fever. However, patient was not sure that he lost consciousness. Patient was admitted with a diagnosis of rhabdomyolysis with a CK of 6660. Patient's CK returned to near normal range of 2160. Patient was treated with IV fluid hydration and supportive care. Patient had extensive workup including head CT, cervical spine CT, thoracic spine x-ray, x-ray and lumbar spine x-rays which were all found to be negative. Patient also had presyncope/syncope workup with carotid ultrasound and echocardiogram that was found to be negative. Patient did have a spike in temperature and workup with blood cultures to rule out bacteremia. Blood cultures found to be negative. Patient was treated with empiric IV antibiotics and stabilized. Case management was consulted for discharge planning. Patient met criteria and family opted for SNF placement. Therefore patient will be discharged to rehabilitation facility. 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 Chronic Afib Disposition: DC/TX-03 SNF [facility] Time spent for discharge: 33 minutes Core Measure Documentation - Palliative Care Palliative Care/ Comfort Measures: Not Applicable - Core Measures Any of the following diagnoses?: none Exam - Constitutional Vitals: Temp Pulse Resp BP Pulse Ox 99.2 F 77 18 135/57 100 09/06/16 09:58 09/06/16 09:58 09/06/16 09:58 09/06/16 09:58 09/05/16 22:00 General appearance: Present: no acute distress, well-nourished - EENT Eyes: Present: PERRL ENT: hearing intact, clear oral mucosa - Neck Neck: Present: supple, normal ROM - Respiratory Respiratory effort: normal Respiratory: bilateral: CTA - Cardiovascular Heart Sounds: Present: S1 & S2. Absent: rub, click - Extremities Extremities: pulses symmetrical, No edema Peripheral Pulses: within normal limits - Abdominal General gastrointestinal: Present: soft, non-tender, non-distended, normal bowel sounds Male genitourinary: Present: normal - Integumentary Integumentary: Present: clear, warm, dry - Musculoskeletal Musculoskeletal: gait normal, strength equal bilaterally - Psychiatric Psychiatric: appropriate mood/affect, intact judgment & insight - Neurologic Neurologic: CNII-XII intact, moves all extremities Plan Follow up with: PRIMARY CARE,MD [Primary Care Provider] - 3-5 Days Forms: Warfarin Discharge Instruction Prescriptions: HYDROcodone/APAP 5-325 [[place] 5-325 mg TAB] 1 each PO Q6H PRN #20 tablet PRN Reason: Pain, Moderate (4-6) Levofloxacin [Levaquin TAB] 500 mg PO QDAY #7 tablet
[2016-09-06] MEDS: LOPRESSOR PO SCH (10:25)
[2016-09-06] MEDS: GLUCOPHAGE PO SCH ×2 (10:26→17:29)
[2016-09-06] MEDS: FLOMAX PO SCH (10:26)
[2016-09-06] MEDS: CORDARONE PO SCH ×2 (10:26→21:31)
[2016-09-06] MEDS: DITROPAN PO SCH (10:26)
[2016-09-06] MEDS: IMDUR PO SCH (10:26)
[2016-09-06] MEDS: COUMADIN PO SCH (17:29)
[2016-09-06] MEDS: NORCO 5/325 PO PRN (21:31)
[2016-09-07] MEDS: MORPHINE IV PRN (01:45)
[2016-09-07 04:44] LABS: INR 2.44 (0.87-1.13)
[2016-09-07] MEDS: GLUCOPHAGE PO SCH ×2 (08:47→17:17)
[2016-09-07] MEDS: FLOMAX PO SCH (10:31)
[2016-09-07] MEDS: DITROPAN PO SCH (10:31)
[2016-09-07] MEDS: CORDARONE PO SCH ×2 (10:39→23:25)
[2016-09-07] MEDS: IMDUR PO SCH (10:40)
[2016-09-07] MEDS: LOPRESSOR PO SCH (10:41)
--- NOTE | 2016-09-07 15:58 | Progress Note ---
Assessment and Plan Assessment and plan: The patient is an 86-year-old male who presented through the emergency room with s/p fall. He got up and went back to the bedroom and fell again and family came back and found him on the floor, there is no history of chest pain no history of shortness of breath nausea or vomiting and no history of fever. However, patient was not sure that he lost consciousness. Patient was admitted with a diagnosis of rhabdomyolysis with a CK of 6660. Patient's CK returned to near normal range of 2160. Patient was treated with IV fluid hydration and supportive care. Patient had extensive workup including head CT, cervical spine CT, thoracic spine x-ray, x-ray and lumbar spine x-rays which were all found to be negative. Patient also had presyncope/syncope workup with carotid ultrasound and echocardiogram that was found to be negative. Patient did have a spike in temperature and workup with blood cultures to rule out bacteremia. Blood cultures found to be negative. Patient was treated with empiric IV antibiotics and stabilized. Case management was consulted for discharge planning. Patient met criteria and family opted for SNF placement. Therefore patient will be discharged to rehabilitation facility. 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 Chronic Afib History Interval history: no complaints Hospitalist Physical - Physical exam Narrative exam: General: Patient appears well in no distress HEENT: MMM, EOMI cardiac: S1-S2 heard lungs: clear to auscultation, abdomen: soft, nontender, nondistended bowel sounds positive extremities: no edema clubbing or cyanosis Skin: no rash or lesion Neuro: no focal deficit Psych: appropriate behavior and mood, cognition intact - Constitutional Vitals: Temp Pulse Resp BP Pulse Ox 96.6 F L 69 18 125/58 97 09/07/16 10:00 09/07/16 10:41 09/07/16 10:00 09/07/16 10:41 09/07/16 10:00 General appearance: Present: no acute distress, well-nourished Results - Labs CBC & Chem 7: 09/04/16 07:11 09/04/16 07:11 Labs: Laboratory Last Values WBC 7.5 K/mm3 (4.5-11.0) 09/04/16 07:11 RBC 3.91 M/mm3 (3.65-5.03) 09/04/16 07:11 Hgb 11.7 gm/dl (11.8-15.2) L 09/04/16 07:11 Hct 34.5 % (35.5-45.6) L 09/04/16 07:11 MCV 88 fl (84-94) 09/04/16 07:11 MCH 30 pg (28-32) 09/04/16 07:11 MCHC 34 % (32-34) 09/04/16 07:11 RDW 14.7 % (13.2-15.2) 09/04/16 07:11 Plt Count 265 K/mm3 (140-440) 09/04/16 07:11 Lymph % (Auto) 10.8 % (13.4-35.0) L 09/04/16 07:11 [place] % (Auto) 10.5 % (0.0-7.3) H 09/04/16 07:11 Eos % (Auto) 1.9 % (0.0-4.3) 09/04/16 07:11 Baso % (Auto) 0.3 % (0.0-1.8) 09/04/16 07:11 Lymph # 0.8 K/mm3 (1.2-5.4) L 09/04/16 07:11 [place] # 0.8 K/mm3 (0.0-0.8) 09/04/16 07:11 Eos # 0.1 K/mm3 (0.0-0.4) 09/04/16 07:11 Baso # 0.0 K/mm3 (0.0-0.1) 09/04/16 07:11 Seg Neutrophils % 76.5 % (40.0-70.0) H 09/04/16 07:11 Seg Neutrophils # 5.7 K/mm3 (1.8-7.7) 09/04/16 07:11 PT 26.6 Sec. (12.2-14.9) H 09/07/16 04:03 INR 2.44 (0.87-1.13) H 09/07/16 04:03 APTT 34.1 Sec. (24.2-36.6) 08/28/16 22:57 Sodium 141 mmol/L (137-145) 09/04/16 07:11 Potassium 3.8 mmol/L (3.6-5.0) 09/04/16 07:11 Chloride 104.6 mmol/L (98-107) 09/04/16 07:11 Carbon Dioxide 21 mmol/L (22-30) L 09/04/16 07:11 Anion Gap 19 mmol/L 09/04/16 07:11 BUN 17 mg/dL (9-20) 09/04/16 07:11 Creatinine 0.8 mg/dL (0.8-1.5) 09/04/16 07:11 Estimated GFR > 60 ml/min 09/04/16 07:11 BUN/Creatinine Ratio 21.25 % 09/04/16 07:11 Glucose 101 mg/dL (75-100) H 09/04/16 07:11 POC Glucose 101 (70-105) 09/07/16 12:16 Lactic Acid 1.10 mmol/L (0.7-2.0) 09/03/16 04:27 Calcium 8.0 mg/dL (8.4-10.2) L 09/04/16 07:11 Total Bilirubin 0.70 mg/dL (0.1-1.2) 08/28/16 22:57 AST 89 units/L (5-40) H 08/28/16 22:57 ALT 23 units/L (7-56) 08/28/16 22:57 Alkaline Phosphatase 47 units/L (35-129) 08/28/16 22:57 Total Creatine Kinase 193 units/L (55-170) H 09/04/16 07:11 CK-MB (CK-2) 17.5 ng/mL (0.0-4.0) H 08/28/16 22:57 CK-MB (CK-2) Rel Index 0.2 (0-4) 08/28/16 22:57 Troponin T < 0.010 ng/mL (0.00-0.029) 08/28/16 22:57 Total Protein 6.6 g/dL (6.3-8.2) 08/28/16 22:57 Albumin 3.7 g/dL (3.9-5) L 08/28/16 22:57 Albumin/Globulin Ratio 1.3 % 08/28/16 22:57 Urine Color Yellow (Yellow) 08/28/16 Unknown Urine Turbidity Clear (Clear) 08/28/16 Unknown Urine pH 5.0 (5.0-7.0) 08/28/16 Unknown Ur Specific [place] 1.018 (1.003-1.030) 08/28/16 Unknown Urine Protein <15 mg/dl mg/dL (Negative) 08/28/16 Unknown Urine Glucose (UA) Neg mg/dL (Negative) 08/28/16 Unknown Urine Ketones Tr mg/dL (Negative) 08/28/16 Unknown Urine Blood Mod (Negative) 08/28/16 Unknown Urine Nitrite Neg (Negative) 08/28/16 Unknown Urine Bilirubin Neg (Negative) 08/28/16 Unknown Urine Urobilinogen < 2.0 mg/dL (<2.0) 08/28/16 Unknown Ur Leukocyte Esterase Neg (Negative) 08/28/16 Unknown Urine WBC (Auto) 1.0 /HPF (0.0-6.0) 08/28/16 Unknown Urine RBC (Auto) 2.0 /HPF (0.0-6.0) 08/28/16 Unknown Urine Bacteria (Auto) 1+ /HPF (Negative) 08/28/16 Unknown Urine Mucus Few /HPF 08/28/16 Unknown
[2016-09-07] MEDS: COUMADIN PO SCH (17:16)
[2016-09-07] MEDS: NACL 0.9% 1000 ML 1,000 ML IV SCH (17:29)
[2016-09-08 03:44] LABS: INR 2.2 (0.87-1.13)
[2016-09-08] MEDS: GLUCOPHAGE PO SCH ×2 (10:00→18:30)
[2016-09-08] MEDS: DITROPAN PO SCH (10:16)
[2016-09-08] MEDS: CORDARONE PO SCH (10:17)
[2016-09-08] MEDS: IMDUR PO SCH (10:17)
[2016-09-08] MEDS: FLOMAX PO SCH (10:17)
[2016-09-08] MEDS: LOPRESSOR PO SCH (10:18)
--- NOTE | 2016-09-08 15:21 | XRay Report ---
CHEST 2 VIEWS INDICATION: Fever. COMPARISON: 05/23/2007 FINDINGS: Frontal and lateral chest radiographs demonstrate stable cardiomediastinal silhouette. No pleural effusions or CHF. Demineralized bones with thoracic spondylosis. CONCLUSION: No acute chest process, as described. Thank you for the opportunity to participate in this patient's care.
[2016-09-08] MEDS: COUMADIN PO SCH (18:48)
[2016-09-09] MEDS: CORDARONE PO SCH ×3 (01:00→21:13)
[2016-09-09 04:47] LABS: INR 2.43 (0.87-1.13)
[2016-09-09] MEDS: GLUCOPHAGE PO SCH ×2 (08:35→18:08)
[2016-09-09] MEDS: FLOMAX PO SCH (10:45)
[2016-09-09 11:03] LABS: Bilirubin,Urine NEG (Negative); Blood,Urine SM (Negative); Ketones,Urine NEG (Negative); Leukocyte Esterase,Urine NEG (Negative); Mucus,Urine 3+ /HPF; Nitrite,Urine NEG (Negative); Protein,Urine <15 mg/dL mg/dL (Negative); Urobilinogen,Urine < 2.0 mg/dL (<2.0)
--- NOTE | 2016-09-09 13:46 | Progress Note ---
Assessment and Plan Assessment and plan: The patient is an 86-year-old male who presented through the emergency room with s/p fall. He got up and went back to the bedroom and fell again and family came back and found him on the floor, there is no history of chest pain no history of shortness of breath nausea or vomiting and no history of fever. However, patient was not sure that he lost consciousness. Patient was admitted with a diagnosis of rhabdomyolysis with a CK of 6660. Patient's CK returned to near normal range of 2160. Patient was treated with IV fluid hydration and supportive care. Patient had extensive workup including head CT, cervical spine CT, thoracic spine x-ray, x-ray and lumbar spine x-rays which were all found to be negative. Patient also had presyncope/syncope workup with carotid ultrasound and echocardiogram that was found to be negative. Patient did have a spike in temperature and workup with blood cultures to rule out bacteremia. Blood cultures found to be negative. Patient was treated with empiric IV antibiotics and stabilized. Case management was consulted for discharge planning. Patient met criteria and family opted for SNF placement. Therefore patient will be discharged to rehabilitation facility. 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 Chronic Afib History Interval history: no complaints Hospitalist Physical - Physical exam Narrative exam: General: Patient appears well in no distress HEENT: MMM, EOMI cardiac: S1-S2 heard lungs: clear to auscultation, abdomen: soft, nontender, nondistended bowel sounds positive extremities: no edema clubbing or cyanosis Skin: no rash or lesion Neuro: no focal deficit Psych: appropriate behavior and mood, cognition intact - Constitutional Vitals: Temp Pulse Resp BP Pulse Ox 99.8 F H 73 20 130/57 96 09/09/16 10:00 09/09/16 10:00 09/09/16 10:00 09/09/16 10:00 09/09/16 01:19 General appearance: Present: no acute distress, well-nourished Results - Labs CBC & Chem 7: 09/04/16 07:11 09/04/16 07:11 Labs: Laboratory Last Values WBC 7.5 K/mm3 (4.5-11.0) 09/04/16 07:11 RBC 3.91 M/mm3 (3.65-5.03) 09/04/16 07:11 Hgb 11.7 gm/dl (11.8-15.2) L 09/04/16 07:11 Hct 34.5 % (35.5-45.6) L 09/04/16 07:11 MCV 88 fl (84-94) 09/04/16 07:11 MCH 30 pg (28-32) 09/04/16 07:11 MCHC 34 % (32-34) 09/04/16 07:11 RDW 14.7 % (13.2-15.2) 09/04/16 07:11 Plt Count 265 K/mm3 (140-440) 09/04/16 07:11 Lymph % (Auto) 10.8 % (13.4-35.0) L 09/04/16 07:11 [place] % (Auto) 10.5 % (0.0-7.3) H 09/04/16 07:11 Eos % (Auto) 1.9 % (0.0-4.3) 09/04/16 07:11 Baso % (Auto) 0.3 % (0.0-1.8) 09/04/16 07:11 Lymph # 0.8 K/mm3 (1.2-5.4) L 09/04/16 07:11 [place] # 0.8 K/mm3 (0.0-0.8) 09/04/16 07:11 Eos # 0.1 K/mm3 (0.0-0.4) 09/04/16 07:11 Baso # 0.0 K/mm3 (0.0-0.1) 09/04/16 07:11 Seg Neutrophils % 76.5 % (40.0-70.0) H 09/04/16 07:11 Seg Neutrophils # 5.7 K/mm3 (1.8-7.7) 09/04/16 07:11 PT 27.7 Sec. (12.2-14.9) H 09/09/16 03:51 INR 2.43 (0.87-1.13) H 09/09/16 03:51 APTT 34.1 Sec. (24.2-36.6) 08/28/16 22:57 Sodium 141 mmol/L (137-145) 09/04/16 07:11 Potassium 3.8 mmol/L (3.6-5.0) 09/04/16 07:11 Chloride 104.6 mmol/L (98-107) 09/04/16 07:11 Carbon Dioxide 21 mmol/L (22-30) L 09/04/16 07:11 Anion Gap 19 mmol/L 09/04/16 07:11 BUN 17 mg/dL (9-20) 09/04/16 07:11 Creatinine 0.8 mg/dL (0.8-1.5) 09/04/16 07:11 Estimated GFR > 60 ml/min 09/04/16 07:11 BUN/Creatinine Ratio 21.25 % 09/04/16 07:11 Glucose 101 mg/dL (75-100) H 09/04/16 07:11 POC Glucose 448 (70-105) H 09/09/16 11:34 Lactic Acid 1.10 mmol/L (0.7-2.0) 09/03/16 04:27 Calcium 8.0 mg/dL (8.4-10.2) L 09/04/16 07:11 Total Bilirubin 0.70 mg/dL (0.1-1.2) 08/28/16 22:57 AST 89 units/L (5-40) H 08/28/16 22:57 ALT 23 units/L (7-56) 08/28/16 22:57 Alkaline Phosphatase 47 units/L (35-129) 08/28/16 22:57 Total Creatine Kinase 193 units/L (55-170) H 09/04/16 07:11 CK-MB (CK-2) 17.5 ng/mL (0.0-4.0) H 08/28/16 22:57 CK-MB (CK-2) Rel Index 0.2 (0-4) 08/28/16 22:57 Troponin T < 0.010 ng/mL (0.00-0.029) 08/28/16 22:57 Total Protein 6.6 g/dL (6.3-8.2) 08/28/16 22:57 Albumin 3.7 g/dL (3.9-5) L 08/28/16 22:57 Albumin/Globulin Ratio 1.3 % 08/28/16 22:57 Urine Color Yellow (Yellow) 09/09/16 09:48 Urine Turbidity Clear (Clear) 09/09/16 09:48 Urine pH 5.0 (5.0-7.0) 09/09/16 09:48 Ur Specific [place] 1.019 (1.003-1.030) 09/09/16 09:48 Urine Protein <15 mg/dl mg/dL (Negative) 09/09/16 09:48 Urine Glucose (UA) Neg mg/dL (Negative) 09/09/16 09:48 Urine Ketones Neg mg/dL (Negative) 09/09/16 09:48 Urine Blood Sm (Negative) 09/09/16 09:48 Urine Nitrite Neg (Negative) 09/09/16 09:48 Urine Bilirubin Neg (Negative) 09/09/16 09:48 Urine Urobilinogen < 2.0 mg/dL (<2.0) 09/09/16 09:48 Ur Leukocyte Esterase Neg (Negative) 09/09/16 09:48 Urine WBC (Auto) 6.0 /HPF (0.0-6.0) 09/09/16 09:48 Urine RBC (Auto) 3.0 /HPF (0.0-6.0) 09/09/16 09:48 U Epithel Cells (Auto) 1.0 /HPF (0-13.0) 09/09/16 09:48 Urine Bacteria (Auto) 1+ /HPF (Negative) 08/28/16 Unknown Urine Mucus 3+ /HPF 09/09/16 09:48
[2016-09-09] MEDS: COUMADIN PO SCH (17:57)
[2016-09-09] MEDS: NORCO 5/325 PO PRN (17:58)
[2016-09-09] MEDS: LOPRESSOR PO SCH (18:05)
[2016-09-09] MEDS: IMDUR PO SCH (18:06)
[2016-09-09] MEDS: NACL 0.9% 1000 ML 1,000 ML IV SCH (21:14)
[2016-09-10 05:38] LABS: INR 2.02 (0.87-1.13)
[2016-09-10] MEDS: GLUCOPHAGE PO SCH ×2 (08:19→17:32)
[2016-09-10] MEDS: IMDUR PO SCH ×2 (10:41→10:47)
[2016-09-10] MEDS: FLOMAX PO SCH (10:41)
[2016-09-10] MEDS: LOPRESSOR PO SCH (10:44)
[2016-09-10] MEDS: CORDARONE PO SCH (10:44)
[2016-09-10] MEDS: DITROPAN PO SCH (10:46)
--- NOTE | 2016-09-10 11:12 | Progress Note ---
Assessment and Plan Assessment and plan: The patient is an 86-year-old male who presented through the emergency room with s/p fall. He got up and went back to the bedroom and fell again and family came back and found him on the floor, there is no history of chest pain no history of shortness of breath nausea or vomiting and no history of fever. However, patient was not sure that he lost consciousness. Patient was admitted with a diagnosis of rhabdomyolysis with a CK of 6660. Patient's CK returned to near normal range of 2160. Patient was treated with IV fluid hydration and supportive care. Patient had extensive workup including head CT, cervical spine CT, thoracic spine x-ray, x-ray and lumbar spine x-rays which were all found to be negative. Patient also had presyncope/syncope workup with carotid ultrasound and echocardiogram that was found to be negative. Patient did have a spike in temperature and workup with blood cultures to rule out bacteremia. Blood cultures found to be negative. Patient was treated with empiric IV antibiotics and stabilized. Case management was consulted for discharge planning. Patient met criteria and family opted for SNF placement. Therefore patient will be discharged to rehabilitation facility. 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 He has no recollection except when he wakes up on the floor. He does not use his AC despite temperature being above 100 degrees, he also does not drink much water, before he goes about walking Hospitalist Physical - Physical exam Narrative exam: General: Patient appears well in no distress HEENT: MMM, EOMI cardiac: S1-S2 heard lungs: clear to auscultation, abdomen: soft, nontender, nondistended bowel sounds positive extremities: 2 plus bipedal edema, no clubbing or cyanosis Skin: no rash or lesion Neuro: no focal deficit Psych: appropriate behavior and mood, cognition intact - Constitutional Vitals: Temp Pulse Resp BP Pulse Ox 99.4 F 74 18 137/60 96 09/10/16 09:23 09/10/16 10:47 09/10/16 09:23 09/10/16 10:47 09/09/16 01:19 General appearance: Present: no acute distress, well-nourished Results - Labs CBC & Chem 7: 09/04/16 07:11 09/04/16 07:11 Labs: Laboratory Last Values WBC 7.5 K/mm3 (4.5-11.0) 09/04/16 07:11 RBC 3.91 M/mm3 (3.65-5.03) 09/04/16 07:11 Hgb 11.7 gm/dl (11.8-15.2) L 09/04/16 07:11 Hct 34.5 % (35.5-45.6) L 09/04/16 07:11 MCV 88 fl (84-94) 09/04/16 07:11 MCH 30 pg (28-32) 09/04/16 07:11 MCHC 34 % (32-34) 09/04/16 07:11 RDW 14.7 % (13.2-15.2) 09/04/16 07:11 Plt Count 265 K/mm3 (140-440) 09/04/16 07:11 Lymph % (Auto) 10.8 % (13.4-35.0) L 09/04/16 07:11 [place] % (Auto) 10.5 % (0.0-7.3) H 09/04/16 07:11 Eos % (Auto) 1.9 % (0.0-4.3) 09/04/16 07:11 Baso % (Auto) 0.3 % (0.0-1.8) 09/04/16 07:11 Lymph # 0.8 K/mm3 (1.2-5.4) L 09/04/16 07:11 [place] # 0.8 K/mm3 (0.0-0.8) 09/04/16 07:11 Eos # 0.1 K/mm3 (0.0-0.4) 09/04/16 07:11 Baso # 0.0 K/mm3 (0.0-0.1) 09/04/16 07:11 Seg Neutrophils % 76.5 % (40.0-70.0) H 09/04/16 07:11 Seg Neutrophils # 5.7 K/mm3 (1.8-7.7) 09/04/16 07:11 PT 23.9 Sec. (12.2-14.9) H 09/10/16 04:04 INR 2.02 (0.87-1.13) H 09/10/16 04:04 APTT 34.1 Sec. (24.2-36.6) 08/28/16 22:57 Sodium 141 mmol/L (137-145) 09/04/16 07:11 Potassium 3.8 mmol/L (3.6-5.0) 09/04/16 07:11 Chloride 104.6 mmol/L (98-107) 09/04/16 07:11 Carbon Dioxide 21 mmol/L (22-30) L 09/04/16 07:11 Anion Gap 19 mmol/L 09/04/16 07:11 BUN 17 mg/dL (9-20) 09/04/16 07:11 Creatinine 0.8 mg/dL (0.8-1.5) 09/04/16 07:11 Estimated GFR > 60 ml/min 09/04/16 07:11 BUN/Creatinine Ratio 21.25 % 09/04/16 07:11 Glucose 101 mg/dL (75-100) H 09/04/16 07:11 POC Glucose 98 (70-105) 09/10/16 07:23 Lactic Acid 1.10 mmol/L (0.7-2.0) 09/03/16 04:27 Calcium 8.0 mg/dL (8.4-10.2) L 09/04/16 07:11 Total Bilirubin 0.70 mg/dL (0.1-1.2) 08/28/16 22:57 AST 89 units/L (5-40) H 08/28/16 22:57 ALT 23 units/L (7-56) 08/28/16 22:57 Alkaline Phosphatase 47 units/L (35-129) 08/28/16 22:57 Total Creatine Kinase 193 units/L (55-170) H 09/04/16 07:11 CK-MB (CK-2) 17.5 ng/mL (0.0-4.0) H 08/28/16 22:57 CK-MB (CK-2) Rel Index 0.2 (0-4) 08/28/16 22:57 Troponin T < 0.010 ng/mL (0.00-0.029) 08/28/16 22:57 Total Protein 6.6 g/dL (6.3-8.2) 08/28/16 22:57 Albumin 3.7 g/dL (3.9-5) L 08/28/16 22:57 Albumin/Globulin Ratio 1.3 % 08/28/16 22:57 Urine Color Yellow (Yellow) 09/09/16 09:48 Urine Turbidity Clear (Clear) 09/09/16 09:48 Urine pH 5.0 (5.0-7.0) 09/09/16 09:48 Ur Specific [place] 1.019 (1.003-1.030) 09/09/16 09:48 Urine Protein <15 mg/dl mg/dL (Negative) 09/09/16 09:48 Urine Glucose (UA) Neg mg/dL (Negative) 09/09/16 09:48 Urine Ketones Neg mg/dL (Negative) 09/09/16 09:48 Urine Blood Sm (Negative) 09/09/16 09:48 Urine Nitrite Neg (Negative) 09/09/16 09:48 Urine Bilirubin Neg (Negative) 09/09/16 09:48 Urine Urobilinogen < 2.0 mg/dL (<2.0) 09/09/16 09:48 Ur Leukocyte Esterase Neg (Negative) 09/09/16 09:48 Urine WBC (Auto) 6.0 /HPF (0.0-6.0) 09/09/16 09:48 Urine RBC (Auto) 3.0 /HPF (0.0-6.0) 09/09/16 09:48 U Epithel Cells (Auto) 1.0 /HPF (0-13.0) 09/09/16 09:48 Urine Bacteria (Auto) 1+ /HPF (Negative) 08/28/16 Unknown Urine Mucus 3+ /HPF 09/09/16 09:48
[2016-09-10] MEDS: NACL 0.9% 1000 ML 1,000 ML IV SCH (13:27)
[2016-09-10] MEDS: COUMADIN PO SCH (17:32)
[2016-09-10] MEDS: LASIX IV SCH (17:36)
[2016-09-11] MEDS: CORDARONE PO SCH ×3 (01:32→22:25)
[2016-09-11 05:31] LABS: Basophils % (Auto) 0.2 % (0.0-1.8); Eosinophils % (Auto) 1.4 % (0.0-4.3); Hematocrit 31.8 % (35.5-45.6); Hemoglobin 10.5 gm/dl (11.8-15.2); Mean Corpuscular HGB Conc 33 % (32-34); Mean Corpuscular Hemoglobin 30 pg (28-32); Mean Corpuscular Volume 89 fl (84-94); Platelet Count 314 K/mm3 (140-440); Red Blood Count 3.57 M/mm3 (3.65-5.03); White Blood Count 7.9 K/mm3 (4.5-11.0)
[2016-09-11 05:39] LABS: INR 1.9 (0.87-1.13)
[2016-09-11 05:47] LABS: Anion Gap 19 mmol/L; Blood Urea Nitrogen 20 mg/dL (9-20); Calcium 8.3 mg/dL (8.4-10.2); Carbon Dioxide 24 mmol/L (22-30); Chloride 103.7 mmol/L (98-107); Glucose 97 mg/dL (75-100); Potassium 3.7 mmol/L (3.6-5.0); Sodium 143 mmol/L (137-145)
[2016-09-11] MEDS: GLUCOPHAGE PO SCH ×2 (08:04→17:08)
[2016-09-11] MEDS: LASIX IV SCH (09:55)
[2016-09-11] MEDS: FLOMAX PO SCH (09:56)
[2016-09-11] MEDS: DITROPAN PO SCH (09:56)
[2016-09-11] MEDS: LOPRESSOR PO SCH (09:57)
[2016-09-11] MEDS: IMDUR PO SCH (09:57)
--- NOTE | 2016-09-11 11:38 | Progress Note ---
Assessment and Plan Assessment and plan: The patient is an 86-year-old male who presented through the emergency room with s/p fall. He got up and went back to the bedroom and fell again and family came back and found him on the floor, there is no history of chest pain no history of shortness of breath nausea or vomiting and no history of fever. However, patient was not sure that he lost consciousness. Patient was admitted with a diagnosis of rhabdomyolysis with a CK of 6660. Patient's CK returned to near normal range of 2160. Patient was treated with IV fluid hydration and supportive care. Patient had extensive workup including head CT, cervical spine CT, thoracic spine x-ray, x-ray and lumbar spine x-rays which were all found to be negative. Patient also had presyncope/syncope workup with carotid ultrasound and echocardiogram that was found to be negative. Patient did have a spike in temperature and workup with blood cultures to rule out bacteremia. Blood cultures found to be negative. Patient was treated with empiric IV antibiotics and stabilized. Case management was consulted for discharge planning. Patient met criteria and family opted for SNF placement. Therefore patient will be discharged to rehabilitation facility. -His house is a a tri-level, with lots of stairs and he does not feel he can go up or down stairs due to weakness -[employer] denied him placement in SNF, appeal is underway - He was found on floor after his neice could not reach him for 11 hours and he lives alone -awaiting PT to document his ability with stairs Autonomic Imbalance/syncope -most likely due to dehydration given clinical picture -However the lack of prodrome makes cardiogenic syncope more probable -cardiology consult appreciated - Continue remote telemetry - We'll evaluate the risk and benefits of Coumadin given multiple falls - Neurology consult placed, to see patient has neurogenic syncope LE edema obtain dopplers to r.o dvt dc ivf, restarted lasix dehydration- now resolved, dc IVF 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 He has no recollection except when he wakes up on the floor. He does not use his AC despite temperature being above 100 degrees, he also does not drink much water, before he goes about walking Hospitalist Physical - Physical exam Narrative exam: General: Patient appears well in no distress HEENT: MMM, EOMI cardiac: S1-S2 heard lungs: clear to auscultation, abdomen: soft, nontender, nondistended bowel sounds positive extremities: 1 plus bipedal edema, interval improvement, no clubbing or cyanosis Skin: no rash or lesion Neuro: no focal deficit Psych: appropriate behavior and mood, cognition intact - Constitutional Vitals: Temp Pulse Resp BP Pulse Ox 98.8 F 78 20 126/68 18 L 09/11/16 10:08 09/11/16 10:08 09/11/16 10:08 09/11/16 10:08 09/10/16 20:00 General appearance: Present: no acute distress, well-nourished Results - Labs CBC & Chem 7: 09/11/16 04:51 09/11/16 04:51 Labs: Laboratory Last Values WBC 7.9 K/mm3 (4.5-11.0) 09/11/16 04:51 RBC 3.57 M/mm3 (3.65-5.03) L 09/11/16 04:51 Hgb 10.5 gm/dl (11.8-15.2) L 09/11/16 04:51 Hct 31.8 % (35.5-45.6) L 09/11/16 04:51 MCV 89 fl (84-94) 09/11/16 04:51 MCH 30 pg (28-32) 09/11/16 04:51 MCHC 33 % (32-34) 09/11/16 04:51 RDW 15.0 % (13.2-15.2) 09/11/16 04:51 Plt Count 314 K/mm3 (140-440) 09/11/16 04:51 Lymph % (Auto) 13.2 % (13.4-35.0) L 09/11/16 04:51 [place] % (Auto) 10.8 % (0.0-7.3) H 09/11/16 04:51 Eos % (Auto) 1.4 % (0.0-4.3) 09/11/16 04:51 Baso % (Auto) 0.2 % (0.0-1.8) 09/11/16 04:51 Lymph # 1.0 K/mm3 (1.2-5.4) L 09/11/16 04:51 [place] # 0.8 K/mm3 (0.0-0.8) 09/11/16 04:51 Eos # 0.1 K/mm3 (0.0-0.4) 09/11/16 04:51 Baso # 0.0 K/mm3 (0.0-0.1) 09/11/16 04:51 Seg Neutrophils % 74.4 % (40.0-70.0) H 09/11/16 04:51 Seg Neutrophils # 5.9 K/mm3 (1.8-7.7) 09/11/16 04:51 PT 22.8 Sec. (12.2-14.9) H 09/11/16 04:51 INR 1.90 (0.87-1.13) H 09/11/16 04:51 APTT 34.1 Sec. (24.2-36.6) 08/28/16 22:57 Sodium 143 mmol/L (137-145) 09/11/16 04:51 Potassium 3.7 mmol/L (3.6-5.0) 09/11/16 04:51 Chloride 103.7 mmol/L (98-107) 09/11/16 04:51 Carbon Dioxide 24 mmol/L (22-30) 09/11/16 04:51 Anion Gap 19 mmol/L 09/11/16 04:51 BUN 20 mg/dL (9-20) 09/11/16 04:51 Creatinine 0.8 mg/dL (0.8-1.5) 09/11/16 04:51 Estimated GFR > 60 ml/min 09/11/16 04:51 BUN/Creatinine Ratio 25.00 % 09/11/16 04:51 Glucose 97 mg/dL (75-100) 09/11/16 04:51 POC Glucose 106 (70-105) H 09/11/16 07:17 Lactic Acid 1.10 mmol/L (0.7-2.0) 09/03/16 04:27 Calcium 8.3 mg/dL (8.4-10.2) L 09/11/16 04:51 Total Bilirubin 0.70 mg/dL (0.1-1.2) 08/28/16 22:57 AST 89 units/L (5-40) H 08/28/16 22:57 ALT 23 units/L (7-56) 08/28/16 22:57 Alkaline Phosphatase 47 units/L (35-129) 08/28/16 22:57 Total Creatine Kinase 193 units/L (55-170) H 09/04/16 07:11 CK-MB (CK-2) 17.5 ng/mL (0.0-4.0) H 08/28/16 22:57 CK-MB (CK-2) Rel Index 0.2 (0-4) 08/28/16 22:57 Troponin T < 0.010 ng/mL (0.00-0.029) 08/28/16 22:57 Total Protein 6.6 g/dL (6.3-8.2) 08/28/16 22:57 Albumin 3.7 g/dL (3.9-5) L 08/28/16 22:57 Albumin/Globulin Ratio 1.3 % 08/28/16 22:57 Urine Color Yellow (Yellow) 09/09/16 09:48 Urine Turbidity Clear (Clear) 09/09/16 09:48 Urine pH 5.0 (5.0-7.0) 09/09/16 09:48 Ur Specific [place] 1.019 (1.003-1.030) 09/09/16 09:48 Urine Protein <15 mg/dl mg/dL (Negative) 09/09/16 09:48 Urine Glucose (UA) Neg mg/dL (Negative) 09/09/16 09:48 Urine Ketones Neg mg/dL (Negative) 09/09/16 09:48 Urine Blood Sm (Negative) 09/09/16 09:48 Urine Nitrite Neg (Negative) 09/09/16 09:48 Urine Bilirubin Neg (Negative) 09/09/16 09:48 Urine Urobilinogen < 2.0 mg/dL (<2.0) 09/09/16 09:48 Ur Leukocyte Esterase Neg (Negative) 09/09/16 09:48 Urine WBC (Auto) 6.0 /HPF (0.0-6.0) 09/09/16 09:48 Urine RBC (Auto) 3.0 /HPF (0.0-6.0) 09/09/16 09:48 U Epithel Cells (Auto) 1.0 /HPF (0-13.0) 09/09/16 09:48 Urine Bacteria (Auto) 1+ /HPF (Negative) 08/28/16 Unknown Urine Mucus 3+ /HPF 09/09/16 09:48
--- NOTE | 2016-09-11 14:24 | Consultation ---
History of Present Illness Consult date: 09/11/16 Consult reason: syncope History of present illness: Patient is an 86-year-old man who was admitted to this hospital 2 weeks ago with syncope. He has been under the management of the medical service. Cardiac consultation is requested at this time for further evaluation of for syncope. The patient is awake and alert, sitting on his chair in the room, with no complaints and in no acute distress. Patient has a history of paroxysmal atrial fibrillation. He has had extensive recent cardiac workup including a cardiac catheterization one year ago, a SERGE 6 months ago, and a transthoracic echocardiogram during the current admission. Cardiac catheterization in April 2015 showed [id number] nonobstructive coronary disease. It was placed on risk factor modification and medical therapy. Serial left ventricular function assessment both with left ventricular angiography, the SERGE and the recent transthoracic echocardiogram all demonstrated normal left ventricle systolic function with ejection fraction calculated at 50-55%. His current ECG is normal sinus or ectopic atrial rhythm. No evidence of recurrent atrial fibrillation at this time. It is notable that the patient is on oral anticoagulation therapy with Coumadin, with the currently therapeutic INR. Indication is likely the paroxysmal atrial fibrillation. Past History Past Medical History: atrial fib, arthritis, diabetes, hypertension, other ( DEMENTIA) Past Surgical History: cholecystectomy, Other (CARDIAC ABLATION) Social history: Lives alone Family history: no significant family history Medications and Allergies Allergies Allergy/AdvReac Type Severity Reaction Status Date / Time No Known Allergies Allergy Verified 08/28/16 22:33 Home Medications Medication Instructions Recorded Confirmed Last Taken Type Furosemide 20 mg PO DAILY 03/06/15 08/28/16 08/28/16 08:00 History Metoprolol [Lopressor TAB] 1.5 tab PO DAILY 03/06/15 08/28/16 08/28/16 08:00 History Oxybutynin [Ditropan] 5 mg PO DAILY 03/06/15 08/28/16 08/28/16 08:00 History Tamsulosin [Flomax] 0.4 mg PO QDAY 03/06/15 08/28/16 08/28/16 08:00 History Warfarin [Coumadin] 5 mg PO DAILY 03/06/15 08/28/16 08/27/16 17:00 History metFORMIN [Glucophage] 1,000 mg PO BID 03/06/15 08/28/16 08/28/16 08:00 History ISOSORBIDE MONOnitrate [Imdur ER] 30 mg PO DAILY 05/01/15 08/28/16 08/28/16 08: 00 History Amiodarone HCl [Amiodarone 100 MG 200 mg PO BID 08/28/16 08/28/16 08/28/16 08: 00 History TAB] AtorvaSTATin [Lipitor] 10 mg PO QHS 08/28/16 08/28/16 08/27/16 21:00 History Amiodarone [Cordarone 200 MG TAB] 200 mg PO BID tablet 08/31/16 Unknown Rx HYDROcodone/APAP 5-325 [[place] 1 each PO Q6H PRN #20 tablet 08/31/16 Unknown Rx 5-325 mg TAB] Insulin Regular, Human [HumuLIN R] 0 units SUB-Q QHS units 08/31/16 Unknown Rx Levofloxacin [Levaquin TAB] 500 mg PO QDAY #7 tablet 09/03/16 Unknown Rx Active Meds: Active Medications Acetaminophen/Hydrocodone Bitart ([place] 5/325) 1 each PO Q6H PRN PRN Reason: Pain, Moderate (4-6) Last Admin: 09/09/16 17:58 Dose: 1 each Amiodarone HCl (Cordarone) 200 mg PO BID [facility] Last Admin: 09/11/16 09:57 Dose: Not Given Furosemide (Lasix) 40 mg IV QDAY [facility] Last Admin: 09/11/16 09:55 Dose: 40 mg Insulin Human Regular (Novolin R) 0 units SUB-Q [facility] PRN Reason: Protocol Last Admin: 09/11/16 08:04 Dose: Not Given Insulin Human Regular (Novolin R) [facility] PR[facility] Reason: Protocol Last Admin: 09/10/16 22:00 Dose: Not Given Isosorbide Mononitrate (Imdur) 30 mg PO DAILY [facility] Last Admin: 09/11/16 09:57 Dose: Not Given Metformin HCl (Glucophage) 1,000 mg PO BIDDIAB [facility] Last Admin: 09/11/16 08:04 Dose: 1,000 mg Metoprolol Tartrate (Lopressor) 50 mg PO DAILY [facility] Last Admin: 09/11/16 09:57 Dose: Not Given Morphine Sulfate (Morphine) 1 mg IV Q4H PRN PRN Reason: Pain, Moderate (4-6) Last Admin: 09/07/16 01:45 Dose: 1 mg Ondansetron HCl (Zofran) 4 mg IV Q6H PRN PRN Reason: Nausea And Vomiting Oxybutynin Chloride (Ditropan) 5 mg PO DAILY [facility] Last Admin: 09/11/16 09:56 Dose: 5 mg Phenol (Chloraseptic) 1 spray MM Q4H PRN PRN Reason: Sore Throat Last Admin: 09/02/16 23:02 Dose: 1 spray Tamsulosin HCl (Flomax) 0.4 mg PO QDAY [facility] Last Admin: 09/11/16 09:56 Dose: 0.4 mg Warfarin Sodium (Coumadin) 3 mg PO DAILY@1700 [facility] Review of Systems Cardiovascular: syncope, no chest pain, no orthopnea, no palpitations, no rapid/ irregular heart beat, no edema, no lightheadedness, no shortness of breath Physical Examination Vital Signs Temp Pulse Resp BP Pulse Ox 98.0 F 82 16 147/63 95 08/28/16 22:28 08/28/16 22:28 08/28/16 22:28 08/28/16 22:28 08/28/16 22:28 General appearance: no acute distress HEENT: Positive: PERRL Neck: Positive: neck supple Cardiac: Positive: Reg Rate and Rhythm Lungs: Positive: Decreased Breath Sounds Neuro: Positive: Grossly Intact Abdomen: Positive: Soft Male genitourinary: Positive: deferred Skin: Positive: Clear Extremities: Absent: edema Results 09/11/16 04:51 09/11/16 04:51 Coagulation 09/11/16 Range/Units 04:51 PT 22.8 H (12.2-14.9) Sec. INR 1.90 H (0.87-1.13) CBC 09/11/16 Range/Units 04:51 WBC 7.9 (4.5-11.0) K/mm3 RBC 3.57 L (3.65-5.03) M/mm3 Hgb 10.5 L (11.8-15.2) gm/dl Hct 31.8 L (35.5-45.6) % Plt Count 314 (140-440) K/mm3 Lymph # 1.0 L (1.2-5.4) K/mm3 [place] # 0.8 (0.0-0.8) K/mm3 Eos # 0.1 (0.0-0.4) K/mm3 Baso # 0.0 (0.0-0.1) K/mm3 Comprehensive Metabolic Panel 09/11/16 Range/Units 04:51 Sodium 143 (137-145) mmol/L Potassium 3.7 (3.6-5.0) mmol/L Chloride 103.7 (98-107) mmol/L Carbon Dioxide 24 (22-30) mmol/L BUN 20 (9-20) mg/dL Creatinine 0.8 (0.8-1.5) mg/dL Glucose 97 (75-100) mg/dL Calcium 8.3 L (8.4-10.2) mg/dL EKG interpretations - Telemetry EKG Rhythm: Sinus Rhythm Assessment and Plan - Patient Problems (1) Syncope Current Visit: Yes Status: Acute Qualifiers: Syncope type: S Encounter type: E Plan to address problem: Recommendations for syncope workup while hospitalized will be remote telemetry monitoring. In addition, it'll be prudent to get a neurological consultation for recurrent syncope in this elderly 86-year-old patient. (2) On continuous oral anticoagulation Current Visit: Yes Status: Acute Plan to address problem: The patient is on Coumadin therapy with an INR currently of about 2.0. Continued oral anticoagulation is likely hazardous in this elderly patient who states that he lives alone, and has had recurrent falls at home. It will be prudent at this time to further evaluate his risk for Coumadin given his social situation and his propensity for falls.
[2016-09-11] MEDS ORDERED: COUMADIN PO SCH (17:00)
[2016-09-12 05:28] LABS: INR 1.94 (0.87-1.13)
--- NOTE | 2016-09-12 08:20 | Vascular Lab Report ---
LOWER EXTREMITY VENOUS DUPLEX: REASON FOR EXAM: Edema of the lower extremities. COMMENTS ON THE RIGHT: All veins visualized are freely compressible without evidence of internal echogenicity. Flow is spontaneous and phasic throughout. COMMENTS ON THE LEFT: All veins visualized are freely compressible without evidence of internal echogenicity. Flow is spontaneous and phasic throughout. IMPRESSION: No evidence of acute or chronic deep venous thrombosis in either lower extremity.
[2016-09-12] MEDS: GLUCOPHAGE PO SCH ×2 (08:45→17:15)
[2016-09-12] MEDS: FLOMAX PO SCH (09:17)
[2016-09-12] MEDS: LASIX IV SCH (09:18)
[2016-09-12] MEDS: CORDARONE PO SCH (09:18)
[2016-09-12] MEDS: DITROPAN PO SCH (09:18)
[2016-09-12] MEDS: LOPRESSOR PO SCH (09:56)
[2016-09-12] MEDS: IMDUR PO SCH (10:24)
[2016-09-12 10:59] VITALS: BP 108/49
--- NOTE | 2016-09-12 11:24 | Consultation ---
History of Present Illness Consult date: 09/12/16 Requesting physician: JOANNE XIAO Reason for Consult: syncope Chief complaint: R leg pain after fall History of present illness: 86 YO M hx HTN/DM2 who I ahve been asked to eval for recurrent syncope. Pt in fact denies any hx of losing consciousness. He presents after falling in his home 4 weeks ago ? d/t mechanical cause as he denies any premonitory presyncopal sx but ? tripped over his feet. He was on the ground for several hours with difficulty rising from the ground but no lateralizing sx. This happened again several weeks later in similar fashion. On neither of these occasions did he have seizure like aura, presyncopal sx, LOC, tongue bite, incontinence or post episode residual deficit. There were no clear aggravating , relieving or other temporal factors. Severity was such to cause fall. Past History Past Medical History: atrial fib, arthritis, diabetes, hypertension, other ( DEMENTIA) Past Surgical History: cholecystectomy, Other (CARDIAC ABLATION) Social history: Lives alone Family history: no significant family history Medications and Allergies Allergies Allergy/AdvReac Type Severity Reaction Status Date / Time No Known Allergies Allergy Verified 08/28/16 22:33 Home Medications Medication Instructions Recorded Confirmed Last Taken Type Furosemide 20 mg PO DAILY 03/06/15 08/28/16 08/28/16 08:00 History Metoprolol [Lopressor TAB] 1.5 tab PO DAILY 03/06/15 08/28/16 08/28/16 08:00 History Oxybutynin [Ditropan] 5 mg PO DAILY 03/06/15 08/28/16 08/28/16 08:00 History Tamsulosin [Flomax] 0.4 mg PO QDAY 03/06/15 08/28/16 08/28/16 08:00 History Warfarin [Coumadin] 5 mg PO DAILY 03/06/15 08/28/16 08/27/16 17:00 History metFORMIN [Glucophage] 1,000 mg PO BID 03/06/15 08/28/16 08/28/16 08:00 History ISOSORBIDE MONOnitrate [Imdur ER] 30 mg PO DAILY 05/01/15 08/28/16 08/28/16 08: 00 History Amiodarone HCl [Amiodarone 100 MG 200 mg PO BID 08/28/16 08/28/16 08/28/16 08: 00 History TAB] AtorvaSTATin [Lipitor] 10 mg PO QHS 08/28/16 08/28/16 08/27/16 21:00 History Amiodarone [Cordarone 200 MG TAB] 200 mg PO BID tablet 08/31/16 Unknown Rx HYDROcodone/APAP 5-325 [[place] 1 each PO Q6H PRN #20 tablet 08/31/16 Unknown Rx 5-325 mg TAB] Insulin Regular, Human [HumuLIN R] 0 units SUB-Q QHS units 08/31/16 Unknown Rx Levofloxacin [Levaquin TAB] 500 mg PO QDAY #7 tablet 09/03/16 Unknown Rx Active Meds: Active Medications Acetaminophen/Hydrocodone Bitart ([place] 5/325) 1 each PO Q6H PRN PRN Reason: Pain, Moderate (4-6) Last Admin: 09/09/16 17:58 Dose: 1 each Amiodarone HCl (Cordarone) 200 mg PO BID [facility] Last Admin: 09/12/16 09:18 Dose: 200 mg Furosemide (Lasix) 40 mg IV QDAY [facility] Last Admin: 09/12/16 09:18 Dose: 40 mg Insulin Human Regular (Novolin R) 0 units SUB-Q [facility] PRN Reason: Protocol Last Admin: 09/12/16 08:00 Dose: Not Given Insulin Human Regular ([facility] R) [facility] Reason: Protocol Last Admin: 09/11/16 22:22 Dose: Not Given Isosorbide Mononitrate (Imdur) 30 mg PO DAILY [facility] Last Admin: 09/12/16 10:24 Dose: Not Given Metformin HCl (Glucophage) 1,000 mg PO BIDDIAB [facility] Last Admin: 09/12/16 08:45 Dose: 1,000 mg Metoprolol Tartrate (Lopressor) 50 mg PO DAILY [facility] Last Admin: 09/12/16 09:56 Dose: Not Given Morphine Sulfate (Morphine) 1 mg IV Q4H PRN PRN Reason: Pain, Moderate (4-6) Last Admin: 09/07/16 01:45 Dose: 1 mg Ondansetron HCl (Zofran) 4 mg IV Q6H PRN PRN Reason: Nausea And Vomiting Oxybutynin Chloride (Ditropan) 5 mg PO DAILY [facility] Last Admin: 09/12/16 09:18 Dose: 5 mg Phenol (Chloraseptic) 1 spray MM Q4H PRN PRN Reason: Sore Throat Last Admin: 09/02/16 23:02 Dose: 1 spray Tamsulosin HCl (Flomax) 0.4 mg PO QDAY [facility] Last Admin: 09/12/16 09:17 Dose: 0.4 mg Warfarin Sodium (Coumadin) 3 mg PO DAILY@1700 [facility] Last Admin: 09/11/16 17:07 Dose: 3 mg Review of Systems All systems: negative Musculoskeletal: shooting leg pain (R leg with abrasion) Neurological: no head injury, no paralysis, no weakness, no parathesias, no numbness, no tingling, no seizures, no syncope, no tremors, no vertigo, no headaches, no migraines, no convulsions, no change in speech, no change in mentation, no confusion, no gait dysfunction, no motor disturbance, no sensory deficit, no double vision Physical Examination - Vital Signs Vital Signs: Vital Signs Temp Pulse Resp BP Pulse Ox 98.0 F 82 16 147/63 95 08/28/16 22:28 08/28/16 22:28 08/28/16 22:28 08/28/16 22:28 08/28/16 22:28 - Constitutional General appearance: comfortable - EENT EENT: Present: ATNC, PERRL, mucous membranes moist, hearing intact, vision intact - Respiratory Respiratory: Present: chest non-tender, normal breath sounds, no respiratory distress - Cardiovascular Cardiovascular: Present: regular rate Extremities: Present: no peripheral edema bilatateraly, no clubbing, cyanosis, no inflammation, no ischemia or petechiae - Gastrointestinal Gastrointestinal: Present: normoactive bowel sounds, soft, non-distended - Integumentary Integumentary: Present: normal - Neurologic Cranial nerve examination: PERRL, EOMI, VFF, V1/V2/V3 grossly intact, face symmetric, tongue midline, intact, intact shoulder shrug, Intact Vestibulo- ocular r, intact corneal reflex, normal palatal elevation Speech examination: intact Detailed motor examination: grossly full strength in Motor examination - right side: 5/5: biceps, triceps, wrist flexion, wrist extension, record retrieval specialist, hip flexors, knee extensors, dorsiflexion, toe extension (EHL) , plantarflexion Motor examination - left side: 5/5: biceps, triceps, wrist flexion, wrist extension, record retrieval specialist, hip flexors, knee extensors, dorsiflexion, toe extension (EHL) , plantarflexion Detailed sensory examination: intact, light touch, temperature Reflex and gait examination: intact Reflexes: 0: ankle, 2+: bicep, knee, tricep - Musculoskeletal Musculoskeletal: Present: no fluid collection, no pain, normal range of motion - Psychiatric Psychiatric: Present: mood/affect appropriate, cooperative Results - Laboratory Findings CBC and BMP: 09/11/16 04:51 09/11/16 04:51 Abnormal Lab Findings: Abnormal Labs 08/29/16 08/29/16 08/29/16 05:50 05:55 07:33 RBC Hgb Hct RDW Lymph % (Auto) [place] % (Auto) Lymph # [place] # Seg Neutrophils % PT INR Potassium Carbon Dioxide Creatinine Glucose POC Glucose 62 L 143 H Lactic Acid Calcium Total Creatine Kinase 7205 H 08/29/16 08/29/16 08/29/16 11:16 12:52 16:29 RBC Hgb Hct RDW Lymph % (Auto) [place] % (Auto) Lymph # [place] # Seg Neutrophils % PT INR Potassium Carbon Dioxide Creatinine Glucose POC Glucose 108 H 167 H Lactic Acid Calcium Total Creatine Kinase 7121 H 08/29/16 08/30/16 08/30/16 22:43 06:02 06:02 RBC Hgb 10.9 L Hct 32.7 L D RDW 15.3 H Lymph % (Auto) [place] % (Auto) Lymph # [place] # Seg Neutrophils % PT 22.6 H INR 1.88 H Potassium Carbon Dioxide Creatinine Glucose POC Glucose 136 H Lactic Acid Calcium Total Creatine Kinase 08/30/16 08/30/16 08/30/16 06:02 11:40 16:54 RBC Hgb Hct RDW Lymph % (Auto) [place] % (Auto) Lymph # [place] # Seg Neutrophils % PT INR Potassium Carbon Dioxide Creatinine Glucose 110 H POC Glucose 140 H 112 H Lactic Acid Calcium 7.6 L Total Creatine Kinase 3892 H 08/30/16 08/31/16 08/31/16 21:25 06:11 06:11 RBC Hgb Hct RDW Lymph % (Auto) [place] % (Auto) Lymph # [place] # Seg Neutrophils % PT 24.3 H INR 2.06 H Potassium Carbon Dioxide Creatinine Glucose POC Glucose 127 H Lactic Acid Calcium Total Creatine Kinase 2160 H 08/31/16 08/31/16 08/31/16 07:38 11:45 16:45 RBC Hgb Hct RDW Lymph % (Auto) [place] % (Auto) Lymph # [place] # Seg Neutrophils % PT INR Potassium Carbon Dioxide Creatinine Glucose POC Glucose 112 H 123 H 165 H Lactic Acid Calcium Total Creatine Kinase 08/31/16 09/01/16 09/01/16 21:43 04:45 07:28 RBC Hgb Hct RDW Lymph % (Auto) [place] % (Auto) Lymph # [place] # Seg Neutrophils % PT 27.9 H INR 2.45 H Potassium Carbon Dioxide Creatinine Glucose POC Glucose 120 H 107 H Lactic Acid Calcium Total Creatine Kinase 09/01/16 09/01/16 09/01/16 10:25 11:29 16:36 RBC Hgb Hct RDW Lymph % (Auto) [place] % (Auto) Lymph # [place] # Seg Neutrophils % PT INR Potassium Carbon Dioxide Creatinine Glucose POC Glucose 146 H 117 H Lactic Acid 2.70 H* Calcium Total Creatine Kinase 09/01/16 09/02/16 09/02/16 21:50 07:09 07:20 RBC Hgb Hct RDW Lymph % (Auto) [place] % (Auto) Lymph # [place] # Seg Neutrophils % PT 35.3 H INR 3.49 H Potassium Carbon Dioxide Creatinine Glucose POC Glucose 119 H 108 H Lactic Acid Calcium Total Creatine Kinase 09/02/16 09/02/16 09/02/16 07:20 07:20 12:15 RBC 3.57 L Hgb 10.6 L Hct 32.0 L RDW Lymph % (Auto) 7.9 L [place] % (Auto) 11.0 H Lymph # 0.6 L [place] # 0.9 H Seg Neutrophils % 79.6 H PT INR Potassium 3.5 L Carbon Dioxide Creatinine 0.7 L Glucose POC Glucose 117 H Lactic Acid Calcium 7.7 L Total Creatine Kinase 09/02/16 09/02/16 09/03/16 16:40 21:07 04:27 RBC Hgb Hct RDW Lymph % (Auto) [place] % (Auto) Lymph # [place] # Seg Neutrophils % PT 34.6 H INR 3.40 H Potassium Carbon Dioxide Creatinine Glucose POC Glucose 108 H 108 H Lactic Acid Calcium Total Creatine Kinase 09/03/16 09/03/16 09/03/16 04:27 04:27 11:31 RBC 3.58 L Hgb 10.8 L Hct 31.7 L RDW Lymph % (Auto) 10.3 L [place] % (Auto) 11.4 H Lymph # 0.7 L [place] # Seg Neutrophils % 76.2 H PT INR Potassium 3.4 L Carbon Dioxide 20 L Creatinine Glucose POC Glucose 140 H Lactic Acid Calcium 7.8 L Total Creatine Kinase 09/03/16 09/03/16 09/04/16 16:19 22:24 07:11 RBC Hgb Hct RDW Lymph % (Auto) [place] % (Auto) Lymph # [place] # Seg Neutrophils % PT 31.5 H INR 3.02 H Potassium Carbon Dioxide Creatinine Glucose POC Glucose 118 H 108 H Lactic Acid Calcium Total Creatine Kinase 09/04/16 09/04/16 09/04/16 07:11 07:11 11:24 RBC Hgb 11.7 L Hct 34.5 L RDW Lymph % (Auto) 10.8 L [place] % (Auto) 10.5 H Lymph # 0.8 L [place] # Seg Neutrophils % 76.5 H PT INR Potassium Carbon Dioxide 21 L Creatinine Glucose 101 H POC Glucose 125 H Lactic Acid Calcium 8.0 L Total Creatine Kinase 193 H 09/04/16 09/04/16 09/05/16 16:26 21:02 04:45 RBC Hgb Hct RDW Lymph % (Auto) [place] % (Auto) Lymph # [place] # Seg Neutrophils % PT 31.2 H INR 2.98 H Potassium Carbon Dioxide Creatinine Glucose POC Glucose 159 H 122 H Lactic Acid Calcium Total Creatine Kinase 09/05/16 09/05/16 09/05/16 07:16 11:46 16:22 RBC Hgb Hct RDW Lymph % (Auto) [place] % (Auto) Lymph # [place] # Seg Neutrophils % PT INR Potassium Carbon Dioxide Creatinine Glucose POC Glucose 108 H 141 H 130 H Lactic Acid Calcium Total Creatine Kinase 09/06/16 09/06/16 09/06/16 03:40 07:39 11:46 RBC Hgb Hct RDW Lymph % (Auto) [place] % (Auto) Lymph # [place] # Seg Neutrophils % PT 26.7 H INR 2.45 H Potassium Carbon Dioxide Creatinine Glucose POC Glucose 113 H 117 H Lactic Acid Calcium Total Creatine Kinase 09/06/16 09/06/16 09/07/16 16:46 21:38 04:03 RBC Hgb Hct RDW Lymph % (Auto) [place] % (Auto) Lymph # [place] # Seg Neutrophils % PT 26.6 H INR 2.44 H Potassium Carbon Dioxide Creatinine Glucose POC Glucose 111 H 113 H Lactic Acid Calcium Total Creatine Kinase 09/07/16 09/07/16 09/08/16 07:26 16:34 03:10 RBC Hgb Hct RDW Lymph % (Auto) [place] % (Auto) Lymph # [place] # Seg Neutrophils % PT 24.5 H INR 2.20 H Potassium Carbon Dioxide Creatinine Glucose POC Glucose 112 H 106 H Lactic Acid Calcium Total Creatine Kinase 09/08/16 09/08/16 09/09/16 11:35 16:51 03:51 RBC Hgb Hct RDW Lymph % (Auto) [place] % (Auto) Lymph # [place] # Seg Neutrophils % PT 27.7 H INR 2.43 H Potassium Carbon Dioxide Creatinine Glucose POC Glucose 136 H 108 H Lactic Acid Calcium Total Creatine Kinase 09/09/16 09/09/16 09/09/16 07:21 11:34 14:25 RBC Hgb Hct RDW Lymph % (Auto) [place] % (Auto) Lymph # [place] # Seg Neutrophils % PT INR Potassium Carbon Dioxide Creatinine Glucose POC Glucose 106 H 448 H 139 H Lactic Acid Calcium Total Creatine Kinase 09/09/16 09/10/16 09/10/16 16:26 04:04 16:34 RBC Hgb Hct RDW Lymph % (Auto) [place] % (Auto) Lymph # [place] # Seg Neutrophils % PT 23.9 H INR 2.02 H Potassium Carbon Dioxide Creatinine Glucose POC Glucose 126 H 134 H Lactic Acid Calcium Total Creatine Kinase 09/10/16 09/11/16 09/11/16 21:55 04:51 04:51 RBC 3.57 L Hgb 10.5 L Hct 31.8 L RDW Lymph % (Auto) 13.2 L [place] % (Auto) 10.8 H Lymph # 1.0 L [place] # Seg Neutrophils % 74.4 H PT 22.8 H INR 1.90 H Potassium Carbon Dioxide Creatinine Glucose POC Glucose 110 H Lactic Acid Calcium Total Creatine Kinase 09/11/16 09/11/16 09/12/16 04:51 07:17 04:32 RBC Hgb Hct RDW Lymph % (Auto) [place] % (Auto) Lymph # [place] # Seg Neutrophils % PT 23.2 H INR 1.94 H Potassium Carbon Dioxide Creatinine Glucose POC Glucose 106 H Lactic Acid Calcium 8.3 L Total Creatine Kinase Assessment and Plan 86 YO M hx HTN/DM2 who I have been asked to eval for recurrent syncope but in fact pt denies any hx of losing consciousness. He is awake and fully oriented. He does report fall x 2 but seemingly mechanical etiology and denies any hx of focal/lateralizing sx, premonitory epileptiform activity e.g aura/automatism, tongue bite, incontinence, motor convulsive activity or post episode residual deficit e.g. post ictal state to suggest seizure. Current neuro exam is normal fully intact w/o deficits/focality. I suspect symptomatic vs. orthostatic hypotension as he does report occasional lightheadedness improved by halving his home CV meds. CTH neg x 2 Orthostatic vital signs borderline positive. There is no subjective or objective evidence to suggest neurologic syndrome. Plan and Recommendation: 1. Telemetry bed w/ Q4 hour neuro checks 2. Labs: Serum/Urine Tox, UA/UCx, Electrolytes especially Na, Ca, Mg, and Glucose, TSH, 3. AED therapy: No clear indication for AED therapy 4. Orthostatic vital signs 5. Conservative management e.g. tapering of BP meds, Toro Hose, encourage PO intake, etc 6. PT/OT 7. We can revisit as needed.
--- NOTE | 2016-09-12 13:48 | Progress Note ---
Assessment and Plan Syncope Hx of paroxysmal atrial fibrillation on warfarin therapy on metoprolol and amiodarone for suppression Diabtes mellitus [facility] April 2015 showed [id number] nonobstructive coronary disease. Medical therapy recommended. Normal left ventricle systolic function with ejection fraction calculated at 50- 55%. Recommendations: Continued oral anticoagulation is likely hazardous in this elderly patient who states that he lives alone, and has had recurrent falls at home. It will be prudent at this time to further evaluate his risk for Coumadin given his social situation and his propensity for falls. Subjective Date of service: 09/12/16 Interval history: Patient has no cardiac complaints. Objective Vital Signs Temp Pulse Pulse Resp BP BP Pulse Ox 09/12/16 10:24 71 113/46 09/12/16 09:56 71 113/46 09/12/16 09:00 98.2 F 70 18 108/49 94 09/12/16 01:35 61 09/11/16 23:00 99.2 F 66 20 134/57 100 - Physical Examination General: No Apparent Distress HEENT: Positive: PERRL Neck: Positive: neck supple Cardiac: Positive: Reg Rate and Rhythm Neuro: Positive: Grossly Intact - Labs and Meds Coagulation 09/12/16 Range/Units 04:32 PT 23.2 H (12.2-14.9) Sec. INR 1.94 H (0.87-1.13)
--- NOTE | 2016-09-12 14:21 | Progress Note ---
Assessment and Plan - Patient Problems (1) Fall Current Visit: Yes Status: Acute Qualifiers: Encounter type: E Plan to address problem: Fall at this particular time most likely secondary to debility. Patient does have some atrophy in calves and quadricep muscles. Combined with autonomic neuropathy as well. I agree with discontinuation of Coumadin. Patient's 86 years old increase fall risk. Await skilled nurse facility placement. (2) On continuous oral anticoagulation Current Visit: Yes Status: Acute Plan to address problem: Devaughn would recommend holding Coumadin. Increased fall risk increased bleeding risks. Current INR 1.94. (3) Rhabdomyolysis Current Visit: Yes Status: Acute Qualifiers: Rhabdomyolysis type: R Encounter type: E (4) Syncope Current Visit: Yes Status: Acute Qualifiers: Syncope type: S Encounter type: E Plan to address problem: Syncope patient has had extensive workup. I think we'll just need lower extremity strengthening. Skilled nurse facility may be optimal. Patient is had negative echo. Carotid ultrasound unremarkable CT scan spine CT scan head. (5) Weakness Current Visit: Yes Status: Acute History Interval history: Patient alert oriented great conversation very all in his care. Patient understands about his risk of falls and the Coumadin. States will be okay to discontinue. Hospitalist Physical - Constitutional Vitals: Temp Pulse Resp BP Pulse Ox 98.2 F 71 18 113/46 94 09/12/16 09:00 09/12/16 10:24 09/12/16 09:00 09/12/16 10:24 09/12/16 09:00 General appearance: Present: no acute distress, well-nourished - EENT Eyes: Present: PERRL, EOM intact ENT: hearing intact, clear oral mucosa, dentition normal, oropharyngeal erythema , no poor dentition, no thrush - Neck Neck: Present: supple, normal ROM - Respiratory Respiratory: bilateral: diminished - Cardiovascular Rhythm: irregularly irregular (or respiratory effort.) - Extremities Extremities: no ischemia, pulses intact, pulses symmetrical Extremity abnormal: edema, cyanosis, other (generalized weakness and debility.) - Abdominal General gastrointestinal: soft, non-tender, non-distended, normal bowel sounds - Integumentary Integumentary: Present: clear, warm, dry - Psychiatric Psychiatric: appropriate mood/affect, cooperative - Neurologic Neurologic: CNII-XII intact, focal deficits Results - Labs CBC & Chem 7: 09/11/16 04:51 09/11/16 04:51 Labs: Laboratory Last Values WBC 7.9 K/mm3 (4.5-11.0) 09/11/16 04:51 RBC 3.57 M/mm3 (3.65-5.03) L 09/11/16 04:51 Hgb 10.5 gm/dl (11.8-15.2) L 09/11/16 04:51 Hct 31.8 % (35.5-45.6) L 09/11/16 04:51 MCV 89 fl (84-94) 09/11/16 04:51 MCH 30 pg (28-32) 09/11/16 04:51 MCHC 33 % (32-34) 09/11/16 04:51 RDW 15.0 % (13.2-15.2) 09/11/16 04:51 Plt Count 314 K/mm3 (140-440) 09/11/16 04:51 Lymph % (Auto) 13.2 % (13.4-35.0) L 09/11/16 04:51 [place] % (Auto) 10.8 % (0.0-7.3) H 09/11/16 04:51 Eos % (Auto) 1.4 % (0.0-4.3) 09/11/16 04:51 Baso % (Auto) 0.2 % (0.0-1.8) 09/11/16 04:51 Lymph # 1.0 K/mm3 (1.2-5.4) L 09/11/16 04:51 [place] # 0.8 K/mm3 (0.0-0.8) 09/11/16 04:51 Eos # 0.1 K/mm3 (0.0-0.4) 09/11/16 04:51 Baso # 0.0 K/mm3 (0.0-0.1) 09/11/16 04:51 Seg Neutrophils % 74.4 % (40.0-70.0) H 09/11/16 04:51 Seg Neutrophils # 5.9 K/mm3 (1.8-7.7) 09/11/16 04:51 PT 23.2 Sec. (12.2-14.9) H 09/12/16 04:32 INR 1.94 (0.87-1.13) H 09/12/16 04:32 APTT 34.1 Sec. (24.2-36.6) 08/28/16 22:57 Sodium 143 mmol/L (137-145) 09/11/16 04:51 Potassium 3.7 mmol/L (3.6-5.0) 09/11/16 04:51 Chloride 103.7 mmol/L (98-107) 09/11/16 04:51 Carbon Dioxide 24 mmol/L (22-30) 09/11/16 04:51 Anion Gap 19 mmol/L 09/11/16 04:51 BUN 20 mg/dL (9-20) 09/11/16 04:51 Creatinine 0.8 mg/dL (0.8-1.5) 09/11/16 04:51 Estimated GFR > 60 ml/min 09/11/16 04:51 BUN/Creatinine Ratio 25.00 % 09/11/16 04:51 Glucose 97 mg/dL (75-100) 09/11/16 04:51 POC Glucose 112 (70-105) H 09/12/16 12:16 Lactic Acid 1.10 mmol/L (0.7-2.0) 09/03/16 04:27 Calcium 8.3 mg/dL (8.4-10.2) L 09/11/16 04:51 Total Bilirubin 0.70 mg/dL (0.1-1.2) 08/28/16 22:57 AST 89 units/L (5-40) H 08/28/16 22:57 ALT 23 units/L (7-56) 08/28/16 22:57 Alkaline Phosphatase 47 units/L (35-129) 08/28/16 22:57 Total Creatine Kinase 193 units/L (55-170) H 09/04/16 07:11 CK-MB (CK-2) 17.5 ng/mL (0.0-4.0) H 08/28/16 22:57 CK-MB (CK-2) Rel Index 0.2 (0-4) 08/28/16 22:57 Troponin T < 0.010 ng/mL (0.00-0.029) 08/28/16 22:57 Total Protein 6.6 g/dL (6.3-8.2) 08/28/16 22:57 Albumin 3.7 g/dL (3.9-5) L 08/28/16 22:57 Albumin/Globulin Ratio 1.3 % 08/28/16 22:57 Urine Color Yellow (Yellow) 09/09/16 09:48 Urine Turbidity Clear (Clear) 09/09/16 09:48 Urine pH 5.0 (5.0-7.0) 09/09/16 09:48 Ur Specific [place] 1.019 (1.003-1.030) 09/09/16 09:48 Urine Protein <15 mg/dl mg/dL (Negative) 09/09/16 09:48 Urine Glucose (UA) Neg mg/dL (Negative) 09/09/16 09:48 Urine Ketones Neg mg/dL (Negative) 09/09/16 09:48 Urine Blood Sm (Negative) 09/09/16 09:48 Urine Nitrite Neg (Negative) 09/09/16 09:48 Urine Bilirubin Neg (Negative) 09/09/16 09:48 Urine Urobilinogen < 2.0 mg/dL (<2.0) 09/09/16 09:48 Ur Leukocyte Esterase Neg (Negative) 09/09/16 09:48 Urine WBC (Auto) 6.0 /HPF (0.0-6.0) 09/09/16 09:48 Urine RBC (Auto) 3.0 /HPF (0.0-6.0) 09/09/16 09:48 U Epithel Cells (Auto) 1.0 /HPF (0-13.0) 09/09/16 09:48 Urine Bacteria (Auto) 1+ /HPF (Negative) 08/28/16 Unknown Urine Mucus 3+ /HPF 09/09/16 09:48
--- NOTE | 2016-09-12 19:41 | Event Note ---
Date: 09/12/16 Long discussion with patient about inability to manipulate stairs. Discuss about the amount of stairs he has to go up as well as the weakness and dizziness. This sets up the opportunity for continue falls which came pose a significant problem for patient especially since he's on Coumadin and anticoagulated. We'll discuss again with cardiology about discontinuation of Coumadin but his wrists seem to outweigh any benefits he may have from it now. Discuss with case management and physical therapy about my concerns with him manipulating stairs and increased risk for fall and knee for further strengthening.
[2016-09-13] MEDS ORDERED: HALFPRIN EC PO SCH (10:00)
[2016-09-13] MEDS ORDERED: CORDARONE PO SCH (10:00)
== END 2016-09-12 20:30 | DRG 565 ==
LOC: ED 22:12 → CC2 08-29 04:41
PROVIDERS: ADMIT Internal Medicine; ATTEND Internal Medicine
DX: T79.6XXA Traumatic ischemia of muscle, initial encounter (principal); D68.9 Coagulation defect, unspecified; D68.32 Hemorrhagic disorder due to extrinsic circulating anticoagulants; M19.90 Unspecified osteoarthritis, unspecified site; E11.9 Type 2 diabetes mellitus without complications; F03.90 Unspecified dementia, unspecified severity, without behavioral disturbance, psychotic disturbance, mood disturbance, and anxiety; W19.XXXA Unspecified fall, initial encounter; I48.2 Chronic atrial fibrillation; G90.8 Other disorders of autonomic nervous system; I25.10 Atherosclerotic heart disease of native coronary artery without angina pectoris; I11.0 Hypertensive heart disease with heart failure; I50.9 Heart failure, unspecified; E86.0 Dehydration; T45.515A Adverse effect of anticoagulants, initial encounter; Y92.89 Other specified places as the place of occurrence of the external cause; Z79.01 Long term (current) use of anticoagulants; Z90.49 Acquired absence of other specified parts of digestive tract; Z79.899 Other long term (current) drug therapy
CPT/HCPCS: 36415; 70450; 71020; 72072; 72100; 72125; 72170; 80048; 80053; 81001; 82140; 82550; 82553; 82962; 84484; 85025; 85027; 85610; 85730; 87040; 87086; 93005; 93010; 93306; 93880; 93970; 96360; G8978-GP; G8979-GP; G8996-GN; G8997-GN; G8998-GN; J1815; J1940; J2270; J7030; J7042

== ENCOUNTER 2017-06-15 06:40 | Emergency (ER) | payer OTHER, MEDICARE ==
[2017-06-15 07:46] LABS: Basophils % (Auto) 0.1 % (0.0-1.8); Eosinophils % (Auto) 0.2 % (0.0-4.3); Hematocrit 30.9 % (35.5-45.6); Hemoglobin 10.1 gm/dl (11.8-15.2); Lymphocytes # (Auto) 0.8 K/mm3 (1.2-5.4); Lymphocytes % (Auto) 6.3 % (13.4-35.0); Mean Corpuscular HGB Conc 33 % (32-34); Mean Corpuscular Hemoglobin 28 pg (28-32); Mean Corpuscular Volume 87 fl (84-94); Monocytes % (Auto) 7.6 % (0.0-7.3); Platelet Count 156 K/mm3 (140-440); Red Blood Count 3.56 M/mm3 (3.65-5.03); Red Cell Distribution Width 16.5 % (13.2-15.2)
[2017-06-15 07:56] LABS: INR 2.02 (0.87-1.13)
[2017-06-15 07:57] LABS: Partial Thromboplastin Time 30.2 Sec. (24.2-36.6)
[2017-06-15 08:09] LABS: BUN/Creatinine Ratio 14; Blood Urea Nitrogen 13 mg/dL (9-20); Calcium 8.1 mg/dL (8.4-10.2); Hemolysis Index 5
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
[2017-06-15] MEDS ORDERED: NACL 0.9% 1000 ML 1,000 ML ONE (10:51)
[2017-06-15] MEDS ORDERED: NACL 0.9% 1000 ML 1,000 ML IV ONE (10:53)
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
[2017-06-15 11:20] VITALS: BP 137/62
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
== END 2017-06-15 11:28 | disposition other institution (70) ==
LOC: ED 06:40
DX: S22.23XA Sternal manubrial dissociation, initial encounter for closed fracture (principal); S27.1XXA Traumatic hemothorax, initial encounter; S00.03XA Contusion of scalp, initial encounter; M54.5 Low back pain; I95.9 Hypotension, unspecified; R10.9 Unspecified abdominal pain; E11.9 Type 2 diabetes mellitus without complications; M19.90 Unspecified osteoarthritis, unspecified site; I10 Essential (primary) hypertension; V44.5XXA Car driver injured in collision with heavy transport vehicle or bus in traffic accident, initial encounter; Y93.89 Activity, other specified; Y92.89 Other specified places as the place of occurrence of the external cause; Y99.8 Other external cause status
CPT/HCPCS: 36415; 70450; 71275; 72125; 72131; 73560; 74177; 80048; 82550; 82553; 84484; 85025; 85610; 85730; 96360; 99291; J7030; Q9967

== ENCOUNTER 2018-11-27 10:15 | Outpatient (CLI) | payer MEDICARE ==
[2018-11-27] MEDS ORDERED: LIDOCAINE (4%) 40 MG/ML TOPICAL SOLN 50 ML BOTTLE TP ONE (10:28)
== END 2018-11-27 10:16 | disposition home or self-care (01) ==
LOC: WOUND 10:15
PROVIDERS: ATTEND Surgery
DX: E11.622 Type 2 diabetes mellitus with other skin ulcer (principal); L97.822 Non-pressure chronic ulcer of other part of left lower leg with fat layer exposed; L97.222 Non-pressure chronic ulcer of left calf with fat layer exposed; I11.0 Hypertensive heart disease with heart failure; I50.9 Heart failure, unspecified; N40.0 Benign prostatic hyperplasia without lower urinary tract symptoms
CPT/HCPCS: 11042; G0463; 99212

== ENCOUNTER 2018-12-03 10:15 | Outpatient (CLI) | payer MEDICARE ==
[2018-12-03] MEDS ORDERED: LIDOCAINE (4%) 40 MG/ML TOPICAL SOLN 50 ML BOTTLE TP ONE (10:18)
== END 2018-12-03 10:16 | disposition home or self-care (01) ==
LOC: WOUND 10:15
PROVIDERS: ATTEND Surgery
DX: E11.622 Type 2 diabetes mellitus with other skin ulcer (principal); L97.222 Non-pressure chronic ulcer of left calf with fat layer exposed; I11.0 Hypertensive heart disease with heart failure; I50.9 Heart failure, unspecified; N40.0 Benign prostatic hyperplasia without lower urinary tract symptoms

== ENCOUNTER 2018-12-10 10:20 | Outpatient (CLI) | payer MEDICARE ==
[2018-12-10] MEDS ORDERED: XYLOCAINE TOPICAL 4% TP ONE (11:34)
[2018-12-10] MEDS ORDERED: SILVER NITRATE TP ONE (11:34)
== END 2018-12-10 10:21 | disposition home or self-care (01) ==
LOC: WOUND 10:20
PROVIDERS: ATTEND Surgery
DX: E11.622 Type 2 diabetes mellitus with other skin ulcer (principal); L97.222 Non-pressure chronic ulcer of left calf with fat layer exposed; I11.0 Hypertensive heart disease with heart failure; I50.9 Heart failure, unspecified; N40.0 Benign prostatic hyperplasia without lower urinary tract symptoms; Z87.891 Personal history of nicotine dependence